=== PATIENT | female | born 1985 | race Caucasian/White ===

== ENCOUNTER 2018-02-06 18:51 | Emergency (ER) | payer MEDICAID, SELFPAY ==
[2018-02-06 19:15] VITALS: BP 126/84; PULSE 94; RESP 14; TEMP 36.9; O2SAT 99
[2018-02-06 19:16] VITALS: PULSE 94; RESP 14; TEMP 36.9; O2SAT 99; BMI 23.0
--- NOTE | 2018-02-06 19:26 | DI.US.S_ITS ---
PROCEDURE: US OB <= 14 WEEKS FETUS INDICATIONS: CRAMPING; BLEEDING OUTSIDE/PRIOR DATING DATA: Last menstrual period (LMP): 11/02/17. LMP-based estimated date of delivery (ELISE): 08/09/18. First dating scan (date and location): 02/06/18. Estimated date of delivery (ELISE) from first dating scan: 08/15/18. TECHNIQUE: Real-time scanning was performed of the fetus and maternal pelvic organs, with image documentation. COMPARISON: None. FINDINGS: Embryo: There is an intrauterine with a gestational sac and pole visualized. There is heart motion with a rate of 138 beats per minute. The biparietal diameter measures 2.0 cm corresponding to gestational age of 13 weeks 1 day. Head circumference is 7.4 cm, 30 weeks 1 day. Abdominal circumference 6.1 cm, 12 weeks 6 days. Femur length is 0.7 cm, 12 weeks 1 day. No perigestational fluid collections. There is an anterior placenta with marginal placenta previa at this point. Measurement variability in dating: +/- 4 weeks by LMP, +/- 7 days by mean sac diameter (use before 6 weeks gestation if crown-rump length not able to be measured), +/- 5 days by crown-rump length (up to 8 weeks 6 days gestation), +/- 7 days by crown-rump length (up to 13 weeks 6 days gestation). Maternal organs: Ovaries were not well seen. Limited images through the kidneys demonstrate no hydronephrosis. Cervical length measures approximately 2.9 cm. IMPRESSION: 1. Single living intrauterine with calculated gestational age of 12 weeks 6 days responding to an estimated delivery date of 08/15/18. 2. Marginal placenta previa at this time. Recommend attention on followup. Dictated by: Irineo Rios M.D. on 02/06/2018 at 20:30 Approved by: Irineo Rios M.D. on 02/06/2018 at 20:33
--- NOTE | 2018-02-06 19:28 | ED.PREGNANCY ---
HPI - <KOLE Romero- - Last Filed: 02/06/18 21:23> General Chief complaint: OB/Uterine Contractions Stated complaint: 13wks cramping and bleeding Time Seen by Provider: 02/06/18 19:20 Source: patient Mode of arrival: ambulatory Limitations: no limitations History of Present Illness HPI Narrative: Patient presents with chief complaint of vaginal bleeding for the past few days. She states she is approximately 12-13 weeks . She has noted bleeding enough to fill a panty liner for the past 2 days and woke up this morning with lower abdominal cramping. She has a history of 2 miscarriages. She denies any fevers vomiting or diarrhea. She denies any vaginal complaints such as discharge and denies any sexually transmitted infections. She denies any lightheadedness. she denies any dysuria urgency or frequency. Review of Systems <KOLE Romero- - Last Filed: 02/06/18 21:23> Review of Systems GENERAL: Denies chills, fatigue, malaise, fever, sweats. HEENT: Denies sinus pain, ear pain, sore throat, difficulty swallowing, dizziness. RESPIRATORY: Denies dyspnea, cough, wheezing, hemoptysis, sputum. CARDIOVASCULAR: Denies chest pain, palpitations, orthopnea, edema, GASTROINTESTINAL: Denies nausea, vomiting, abdominal pain, diarrhea, constipation, melena. : See HPI MUSCULOSKELETAL: denies weakness, joint pain, or bony pain SKIN: Denies rash, skin lesions, or other NEUROLOGIC: Denies weakness, headache, numbness, change in speech, confusion, seizures, incoordination. PSYCHIATRIC: No concerning psychosocial issues. 12 point review of systems is negative except for those stated above Exam <SHAWN RomeroP- - Last Filed: 02/06/18 21:23> Narrative Exam Narrative: GENERAL: This is a well-nourished, well-developed patient, Teary. HEAD: Atraumatic. Normocephalic. No temporal or scalp tenderness. EYES: Pupils equal round and reactive. Extraocular motions intact. No scleral icterus. No injection or drainage. ENT: Nose without bleeding, purulent drainage or septal hematoma. Throat without erythema, tonsillar hypertrophy or exudate. Uvula midline. Airway patent. NECK: Trachea midline. No JVD or lymphadenopathy. Supple, nontender, no meningeal signs. CARDIOVASCULAR: Regular rate and rhythm without murmurs, gallops, or rubs. RESPIRATORY: Clear to auscultation. Breath sounds equal bilaterally. No wheezes, rales, or rhonchi. GASTROINTESTINAL: Abdomen soft, Active bowel sounds all 4 quadrants, nondistended. No hepato-splenomegaly, or palpable masses. No guarding. slight pain to palpation suprapubic area. No guarding noted. No pain at McBurney's point. EXTREMITIES: No clubbing, cyanosis, or edema. No joint tenderness, effusion, or edema noted. BACK: Nontender without deformity or crepitance. No flank tenderness. NEURO: AOx3. SKIN: No rash or erythema. Initial Vital Signs Initial Vital Signs: Vital Signs Temperature 98.5 F 02/06/18 19:15 Pulse Rate 94 H 02/06/18 19:15 Respiratory Rate 14 02/06/18 19:15 Blood Pressure 126/84 02/06/18 19:15 Pulse Oximetry 99 02/06/18 19:15 <Aminta Blackburn DO - Last Filed: 02/09/18 01:44> Initial Vital Signs Initial Vital Signs: Vital Signs Temperature 98.5 F 02/06/18 19:15 Pulse Rate 94 H 02/06/18 19:15 Respiratory Rate 14 02/06/18 19:15 Blood Pressure 126/84 02/06/18 19:15 Pulse Oximetry 99 02/06/18 19:15 Course <KOLE Romero-BC - Last Filed: 02/06/18 21:23> Orders Ordered: Discontinued Medications Oxycodone HCl (Percolone) 5 mg PO NOW ONE Stop: 02/06/18 20:37 Last Admin: 02/06/18 21:18 Dose: Oxycodone/Acetaminophen (Percocet 5/325) 1 tab PO NOW ONE Stop: 02/06/18 20:41 Last Admin: 02/06/18 20:41 Dose: 1 tab Vital Signs - 8 hr 02/06/18 19:15 02/06/18 19:16 02/06/18 19:38 Temperature 98.5 F 98.5 F 98.5 F Pulse Rate 94 H 94 H 94 H Respiratory Rate 14 14 14 Blood Pressure [Right Arm] 126/84 Pulse Oximetry 99 99 99 10/16/18 21:09 Temperature Pulse Rate 78 Respiratory Rate 14 Blood Pressure [Right Arm] 105/64 Pulse Oximetry 97 <Aminta Blackburn DO - Last Filed: 02/09/18 01:44> Orders Ordered: Discontinued Medications Oxycodone HCl (Percolone) 5 mg PO NOW ONE Stop: 02/06/18 20:37 Last Admin: 02/06/18 21:18 Dose: Oxycodone/Acetaminophen (Percocet 5/325) 1 tab PO NOW ONE Stop: 02/06/18 20:41 Last Admin: 02/06/18 20:41 Dose: 1 tab Vital Signs - 8 hr 02/06/18 19:15 02/06/18 19:16 02/06/18 19:38 Temperature 98.5 F 98.5 F 98.5 F Pulse Rate 94 H 94 H 94 H Respiratory Rate 14 14 14 Blood Pressure [Right Arm] 126/84 Pulse Oximetry 99 99 99 02/06/18 21:09 Temperature Pulse Rate 78 Respiratory Rate 14 Blood Pressure [Right Arm] 105/64 Pulse Oximetry 97 MDM - OB/Uterine Contractions <DAVEY Romero - Last Filed: 02/06/18 21:23> Lab Data Result diagrams: 02/06/18 19:30 Lab Results 02/06/18 02/06/18 02/06/18 Range/Units 19:30 19:30 19:30 WBC 6.8 (4.5-11.0) X10^3/uL RBC 3.97 L (4.0-5.2) X10^6/uL Hgb 12.2 (12.0-16.0) g/dL Hct 35.1 L (36-46) % MCV 88.4 (80-100) fL MCH 30.6 (26-34) PG MCHC 34.6 (30-36) % RDW 13.2 (11.6-14.8) % Plt Count 222 (150-400) X10^3/uL Neut % (Auto) 66.2 (50-75) % Lymph % (Auto) 25.9 (25-40) % [place] % (Auto) 6.2 (3-14) % Eos % (Auto) 1.5 L (2-4) % Baso % (Auto) 0.2 (0-2) % Neut # (Auto) 4500 (1262-0866) /uL HCG, Quant 34808 mIU/mL Urine Color Urine Appearance Urine pH (4.5-8.0) Ur Specific [place] (1.000-1.035) Urine Protein (Negative) Urine Glucose (UA) (Normal) g/dL Urine Ketones (NEGATIVE) Urine Occult Blood (Negative) Urine Nitrate (Negative) Urine Bilirubin (NEGATIVE) Urine Urobilinogen (0.2) E.U./dL Ur Leukocyte Esterase (NEGATIVE) Urine RBC (0-5/HPF) Urine WBC (0-5/HPF) Ur Squamous Epith Cells Urine Bacteria (None) Ur Culture Indicated? Micro UA Comment Blood Type O Negative 02/06/18 Range/Units Unknown WBC (4.5-11.0) X10^3/uL RBC (4.0-5.2) X10^6/uL Hgb (12.0-16.0) g/dL Hct (36-46) % MCV (80-100) fL MCH (26-34) PG MCHC (30-36) % RDW (11.6-14.8) % Plt Count (150-400) X10^3/uL Neut % (Auto) (50-75) % Lymph % (Auto) (25-40) % [place] % (Auto) (3-14) % Eos % (Auto) (2-4) % Baso % (Auto) (0-2) % Neut # (Auto) (3600-1150) /uL HCG, Quant mIU/mL Urine Color Yellow Urine Appearance Clear Urine pH 6.5 (4.5-8.0) Ur Specific [place] <=1.005 (1.000-1.035) Urine Protein Negative (Negative) Urine Glucose (UA) Negative (Normal) g/dL Urine Ketones Negative (NEGATIVE) Urine Occult Blood Negative (Negative) Urine Nitrate Negative (Negative) Urine Bilirubin Negative (NEGATIVE) Urine Urobilinogen 0.2 (0.2) E.U./dL Ur Leukocyte Esterase Negative (NEGATIVE) Urine RBC None seen (0-5/HPF) Urine WBC None seen (0-5/HPF) Ur Squamous Epith Cells 0-1 /hpf Urine Bacteria None seen (None) Ur Culture Indicated? Cult not indicated Micro UA Comment Microscopic normal Blood Type Imaging Data US - abdomen: Radiologist's impression: [address] [address] Ultrasound Report Signed Patient: Karma Hinds LMR#: [id number] : 1985Acct:[id number] Age/Sex: 32 / FDate of Service: 02/06/18 Loc: ED Accession Number: [id number] Procedure: US OB <= 14 weeks fetus Ordering Provider: Blaire Pedraza PROCEDURE: US OB <= 14 WEEKS FETUS INDICATIONS: CRAMPING; BLEEDING OUTSIDE/PRIOR DATING DATA: Last menstrual period (LMP): 11/02/17. LMP-based estimated date of delivery (ELISE): 08/09/18. First dating scan (date and location): 02/06/18. Estimated date of delivery (ELISE) from first dating scan: 08/15/18. TECHNIQUE: Real-time scanning was performed of the fetus and maternal pelvic organs, with image documentation. COMPARISON: None. FINDINGS: Embryo: There is an intrauterine with a gestational sac and pole visualized. There is heart motion with a rate of 138 beats per minute. The biparietal diameter measures 2.0 cm corresponding to gestational age of 13 weeks 1 day. Head circumference is 7.4 cm, 30 weeks 1 day. Abdominal circumference 6.1 cm, 12 weeks 6 days. Femur length is 0.7 cm, 12 weeks 1 day. No perigestational fluid collections. There is an anterior placenta with marginal placenta previa at this point. Measurement variability in dating: +/- 4 weeks by LMP, +/- 7 days by mean sac diameter (use before 6 weeks gestation if crown-rump length not able to be measured), +/- 5 days by crown-rump length (up to 8 weeks 6 days gestation), +/- 7 days by crown-rump length (up to 13 weeks 6 days gestation). Maternal organs: Ovaries were not well seen. Limited images through the kidneys demonstrate no hydronephrosis. Cervical length measures approximately 2.9 cm. IMPRESSION: 1. Single living intrauterine with calculated gestational age of 12 weeks 6 days responding to an estimated delivery date of 08/15/18. 2. Marginal placenta previa at this time. Recommend attention on followup. Dictated by: Irineo Rios M.D. on 02/06/2018 at 20:30 Approved by: Irineo Rios M.D. on 02/06/2018 at 20:33 MDM Narrative Medical decision making narrative: Patient presents with chief complaint of vaginal bleeding during . It has was going on for 2 days but she has no bleeding today but abdominal cramping. Her lab work came back grossly normal. Ultrasound shows a healthy at this time, but slight placenta previa. I believe this is causing her abdominal cramping and vaginal bleeding. I discussed at length follow up with her OBGYN and discussed return precautions of severe bleeding and lightheadedness. Patient had no questions or concerns upon discharge. <Aminta Blackburn, DO - Last Filed: 02/09/18 01:44> Lab Data Attestation: I reviewed the patient's lab results. Lab Results 02/06/18 02/06/18 02/06/18 Range/Units 19:30 19:30 19:30 WBC 6.8 (4.5-11.0) X10^3/uL RBC 3.97 L (4.0-5.2) X10^6/uL Hgb 12.2 (12.0-16.0) g/dL Hct 35.1 L (36-46) % MCV 88.4 (80-100) fL MCH 30.6 (26-34) PG MCHC 34.6 (30-36) % RDW 13.2 (11.6-14.8) % Plt Count 222 (150-400) X10^3/uL Neut % (Auto) 66.2 (50-75) % Lymph % (Auto) 25.9 (25-40) % [place] % (Auto) 6.2 (3-14) % Eos % (Auto) 1.5 L (2-4) % Baso % (Auto) 0.2 (0-2) % Neut # (Auto) 4500 (8651-8891) /uL HCG, Quant 32444 mIU/mL Urine Color Urine Appearance Urine pH (4.5-8.0) Ur Specific [place] (1.000-1.035) Urine Protein (Negative) Urine Glucose (UA) (Normal) g/dL Urine Ketones (NEGATIVE) Urine Occult Blood (Negative) Urine Nitrate (Negative) Urine Bilirubin (NEGATIVE) Urine Urobilinogen (0.2) E.U./dL Ur Leukocyte Esterase (NEGATIVE) Urine RBC (0-5/HPF) Urine WBC (0-5/HPF) Ur Squamous Epith Cells Urine Bacteria (None) Ur Culture Indicated? Micro UA Comment Blood Type O Negative 02/06/18 Range/Units Unknown WBC (4.5-11.0) X10^3/uL RBC (4.0-5.2) X10^6/uL Hgb (12.0-16.0) g/dL Hct (36-46) % MCV (80-100) fL MCH (26-34) PG MCHC (30-36) % RDW (11.6-14.8) % Plt Count (150-400) X10^3/uL Neut % (Auto) (50-75) % Lymph % (Auto) (25-40) % [place] % (Auto) (3-14) % Eos % (Auto) (2-4) % Baso % (Auto) (0-2) % Neut # (Auto) (7710-0565) /uL HCG, Quant mIU/mL Urine Color Yellow Urine Appearance Clear Urine pH 6.5 (4.5-8.0) Ur Specific [place] <=1.005 (1.000-1.035) Urine Protein Negative (Negative) Urine Glucose (UA) Negative (Normal) g/dL Urine Ketones Negative (NEGATIVE) Urine Occult Blood Negative (Negative) Urine Nitrate Negative (Negative) Urine Bilirubin Negative (NEGATIVE) Urine Urobilinogen 0.2 (0.2) E.U./dL Ur Leukocyte Esterase Negative (NEGATIVE) Urine RBC None seen (0-5/HPF) Urine WBC None seen (0-5/HPF) Ur Squamous Epith Cells 0-1 /hpf Urine Bacteria None seen (None) Ur Culture Indicated? Cult not indicated Micro UA Comment Microscopic normal Blood Type Discharge Plan Departure Patient Disposition: Home Clinical Impression: Threatened Discharge Date/Time: 02/06/18 21:21 Interventions: ED Discharge Assessment Last Done: 02/06/18 21:18 Instructions: DI for Placenta Previa, DI for Vaginal Bleeding During Activity Restrictions/Additional Instructions: Your lab work looks good today. Your ultrasound shows some placenta previa. This can be causing cramping as well as some vaginal bleeding. Please follow-up with your OBGYN for recheck and recheck of your lab work. please follow-up with your OBGYN. <Aminta Blackburn, DO - Last Filed: 02/09/18 01:44> Cosign ED Attending Sarah Attestation: I was immediately available in the department for consultation. Documentation has been reviewed. I agree with assessment and plan. Discussed giving a RhoGAM, not having a large amount of bleeding. Patient is O negative.
--- NOTE | 2018-02-06 19:31 | ED_ITS ---
HPI - <KOLE Romero- - Last Filed: 02/06/18 21:23> General Chief complaint: OB/Uterine Contractions Stated complaint: 13wks cramping and bleeding Time Seen by Provider: 02/06/18 19:20 Source: patient Mode of arrival: ambulatory Limitations: no limitations History of Present Illness HPI Narrative: Patient presents with chief complaint of vaginal bleeding for the past few days. She states she is approximately 12-13 weeks . She has noted bleeding enough to fill a panty liner for the past 2 days and woke up this morning with lower abdominal cramping. She has a history of 2 miscarriages. She denies any fevers vomiting or diarrhea. She denies any vaginal complaints such as discharge and denies any sexually transmitted infections. She denies any lightheadedness. she denies any dysuria urgency or frequency. Review of Systems <KOLE Romero- - Last Filed: 02/06/18 21:23> Review of Systems GENERAL: Denies chills, fatigue, malaise, fever, sweats. HEENT: Denies sinus pain, ear pain, sore throat, difficulty swallowing, dizziness. RESPIRATORY: Denies dyspnea, cough, wheezing, hemoptysis, sputum. CARDIOVASCULAR: Denies chest pain, palpitations, orthopnea, edema, GASTROINTESTINAL: Denies nausea, vomiting, abdominal pain, diarrhea, constipation, melena. : See HPI MUSCULOSKELETAL: denies weakness, joint pain, or bony pain SKIN: Denies rash, skin lesions, or other NEUROLOGIC: Denies weakness, headache, numbness, change in speech, confusion, seizures, incoordination. PSYCHIATRIC: No concerning psychosocial issues. 12 point review of systems is negative except for those stated above Exam <SHAWN RomeroP- - Last Filed: 02/06/18 21:23> Narrative Exam Narrative: GENERAL: This is a well-nourished, well-developed patient, Teary. HEAD: Atraumatic. Normocephalic. No temporal or scalp tenderness. EYES: Pupils equal round and reactive. Extraocular motions intact. No scleral icterus. No injection or drainage. ENT: Nose without bleeding, purulent drainage or septal hematoma. Throat without erythema, tonsillar hypertrophy or exudate. Uvula midline. Airway patent. NECK: Trachea midline. No JVD or lymphadenopathy. Supple, nontender, no meningeal signs. CARDIOVASCULAR: Regular rate and rhythm without murmurs, gallops, or rubs. RESPIRATORY: Clear to auscultation. Breath sounds equal bilaterally. No wheezes , rales, or rhonchi. GASTROINTESTINAL: Abdomen soft, Active bowel sounds all 4 quadrants, nondistended. No hepato-splenomegaly, or palpable masses. No guarding. slight pain to palpation suprapubic area. No guarding noted. No pain at McBurney's point. EXTREMITIES: No clubbing, cyanosis, or edema. No joint tenderness, effusion, or edema noted. BACK: Nontender without deformity or crepitance. No flank tenderness. NEURO: AOx3. SKIN: No rash or erythema. Initial Vital Signs Initial Vital Signs: Vital Signs Temperature 98.5 F 02/06/18 19:15 Pulse Rate 94 H 02/06/18 19:15 Respiratory Rate 14 02/06/18 19:15 Blood Pressure 126/84 02/06/18 19:15 Pulse Oximetry 99 02/06/18 19:15 <Aminta Blackburn DO - Last Filed: 02/09/18 01:44> Initial Vital Signs Initial Vital Signs: Vital Signs Temperature 98.5 F 02/06/18 19:15 Pulse Rate 94 H 02/06/18 19:15 Respiratory Rate 14 02/06/18 19:15 Blood Pressure 126/84 02/06/18 19:15 Pulse Oximetry 99 02/06/18 19:15 Course <KOLE Romero-BC - Last Filed: 02/06/18 21:23> Orders Ordered: Discontinued Medications Oxycodone HCl (Percolone) 5 mg PO NOW ONE Stop: 02/06/18 20:37 Last Admin: 02/06/18 21:18 Dose: Oxycodone/Acetaminophen (Percocet 5/325) 1 tab PO NOW ONE Stop: 02/06/18 20:41 Last Admin: 02/06/18 20:41 Dose: 1 tab Vital Signs - 8 hr 02/06/18 19:15 02/06/18 19:16 02/06/18 19:38 Temperature 98.5 F 98.5 F 98.5 F Pulse Rate 94 H 94 H 94 H Respiratory Rate 14 14 14 Blood Pressure [Right Arm] 126/84 Pulse Oximetry 99 99 99 10/16/18 21:09 Temperature Pulse Rate 78 Respiratory Rate 14 Blood Pressure [Right Arm] 105/64 Pulse Oximetry 97 <Aminta Blackburn DO - Last Filed: 02/09/18 01:44> Orders Ordered: Discontinued Medications Oxycodone HCl (Percolone) 5 mg PO NOW ONE Stop: 02/06/18 20:37 Last Admin: 02/06/18 21:18 Dose: Oxycodone/Acetaminophen (Percocet 5/325) 1 tab PO NOW ONE Stop: 02/06/18 20:41 Last Admin: 02/06/18 20:41 Dose: 1 tab Vital Signs - 8 hr 02/06/18 19:15 02/06/18 19:16 02/06/18 19:38 Temperature 98.5 F 98.5 F 98.5 F Pulse Rate 94 H 94 H 94 H Respiratory Rate 14 14 14 Blood Pressure [Right Arm] 126/84 Pulse Oximetry 99 99 99 02/06/18 21:09 Temperature Pulse Rate 78 Respiratory Rate 14 Blood Pressure [Right Arm] 105/64 Pulse Oximetry 97 MDM - OB/Uterine Contractions <DAVEY Romero - Last Filed: 02/06/18 21:23> Lab Data Result diagrams: 02/06/18 19:30 Lab Results 02/06/18 02/06/18 02/06/18 Range/Units 19:30 19:30 19:30 WBC 6.8 (4.5-11.0) X10^3/uL RBC 3.97 L (4.0-5.2) X10^6/uL Hgb 12.2 (12.0-16.0) g/dL Hct 35.1 L (36-46) % MCV 88.4 (80-100) fL MCH 30.6 (26-34) PG MCHC 34.6 (30-36) % RDW 13.2 (11.6-14.8) % Plt Count 222 (150-400) X10^3/uL Neut % (Auto) 66.2 (50-75) % Lymph % (Auto) 25.9 (25-40) % Weld % (Auto) 6.2 (3-14) % Eos % (Auto) 1.5 L (2-4) % Baso % (Auto) 0.2 (0-2) % Neut # (Auto) 4500 (4582-6868) /uL HCG, Quant 77087 mIU/mL Urine Color Urine Appearance Urine pH (4.5-8.0) Ur Specific [place] (1.000-1.035) Urine Protein (Negative) Urine Glucose (UA) (Normal) g/dL Urine Ketones (NEGATIVE) Urine Occult Blood (Negative) Urine Nitrate (Negative) Urine Bilirubin (NEGATIVE) Urine Urobilinogen (0.2) E.U./dL Ur Leukocyte Esterase (NEGATIVE) Urine RBC (0-5/HPF) Urine WBC (0-5/HPF) Ur Squamous Epith Cells Urine Bacteria (None) Ur Culture Indicated? Micro UA Comment Blood Type O Negative 02/06/18 Range/Units Unknown WBC (4.5-11.0) X10^3/uL RBC (4.0-5.2) X10^6/uL Hgb (12.0-16.0) g/dL Hct (36-46) % MCV (80-100) fL MCH (26-34) PG MCHC (30-36) % RDW (11.6-14.8) % Plt Count (150-400) X10^3/uL Neut % (Auto) (50-75) % Lymph % (Auto) (25-40) % Weld % (Auto) (3-14) % Eos % (Auto) (2-4) % Baso % (Auto) (0-2) % Neut # (Auto) (4633-8092) /uL HCG, Quant mIU/mL Urine Color Yellow Urine Appearance Clear Urine pH 6.5 (4.5-8.0) Ur Specific [place] <=1.005 (1.000-1.035) Urine Protein Negative (Negative) Urine Glucose (UA) Negative (Normal) g/dL Urine Ketones Negative (NEGATIVE) Urine Occult Blood Negative (Negative) Urine Nitrate Negative (Negative) Urine Bilirubin Negative (NEGATIVE) Urine Urobilinogen 0.2 (0.2) E.U./dL Ur Leukocyte Esterase Negative (NEGATIVE) Urine RBC None seen (0-5/HPF) Urine WBC None seen (0-5/HPF) Ur Squamous Epith Cells 0-1 /hpf Urine Bacteria None seen (None) Ur Culture Indicated? Cult not indicated Micro UA Comment Microscopic normal Blood Type Imaging Data US - abdomen: Radiologist's impression: [address] [address] Ultrasound Report Signed Patient: Karma Hinds LMR#: [id number] : 1985Acct:[id number] Age/Sex: 32 / FDate of Service: 02/06/18 Loc: ED Accession Number: [id number] Procedure: US OB <= 14 weeks fetus Ordering Provider: Blaire Pedraza PROCEDURE: US OB <= 14 WEEKS FETUS INDICATIONS: CRAMPING; BLEEDING OUTSIDE/PRIOR DATING DATA: Last menstrual period (LMP): 11/02/17. LMP-based estimated date of delivery (ELISE): 08/09/18. First dating scan (date and location): 02/06/18. Estimated date of delivery (ELISE) from first dating scan: 08/15/18. TECHNIQUE: Real-time scanning was performed of the fetus and maternal pelvic organs, with image documentation. COMPARISON: None. FINDINGS: Embryo: There is an intrauterine with a gestational sac and pole visualized. There is heart motion with a rate of 138 beats per minute. The biparietal diameter measures 2.0 cm corresponding to gestational age of 13 weeks 1 day. Head circumference is 7.4 cm, 30 weeks 1 day. Abdominal circumference 6.1 cm, 12 weeks 6 days. Femur length is 0.7 cm, 12 weeks 1 day. No perigestational fluid collections. There is an anterior placenta with marginal placenta previa at this point. Measurement variability in dating: +/- 4 weeks by LMP, +/- 7 days by mean sac diameter (use before 6 weeks gestation if crown-rump length not able to be measured), +/ - 5 days by crown-rump length (up to 8 weeks 6 days gestation), +/- 7 days by crown-rump length (up to 13 weeks 6 days gestation). Maternal organs: Ovaries were not well seen. Limited images through the kidneys demonstrate no hydronephrosis. Cervical length measures approximately 2.9 cm. IMPRESSION: 1. Single living intrauterine with calculated gestational age of 12 weeks 6 days responding to an estimated delivery date of 08/15/18. 2. Marginal placenta previa at this time. Recommend attention on followup. Dictated by: Irineo Rios M.D. on 02/06/2018 at 20:30 Approved by: Irineo Rios M.D. on 02/06/2018 at 20:33 MDM Narrative Medical decision making narrative: Patient presents with chief complaint of vaginal bleeding during . It has was going on for 2 days but she has no bleeding today but abdominal cramping. Her lab work came back grossly normal. Ultrasound shows a healthy at this time, but slight placenta previa. I believe this is causing her abdominal cramping and vaginal bleeding. I discussed at length follow up with her OBGYN and discussed return precautions of severe bleeding and lightheadedness. Patient had no questions or concerns upon discharge. <Aminta Blackburn, DO - Last Filed: 02/09/18 01:44> Lab Data Attestation: I reviewed the patient's lab results. Lab Results 02/06/18 02/06/18 02/06/18 Range/Units 19:30 19:30 19:30 WBC 6.8 (4.5-11.0) X10^3/uL RBC 3.97 L (4.0-5.2) X10^6/uL Hgb 12.2 (12.0-16.0) g/dL Hct 35.1 L (36-46) % MCV 88.4 (80-100) fL MCH 30.6 (26-34) PG MCHC 34.6 (30-36) % RDW 13.2 (11.6-14.8) % Plt Count 222 (150-400) X10^3/uL Neut % (Auto) 66.2 (50-75) % Lymph % (Auto) 25.9 (25-40) % Weld % (Auto) 6.2 (3-14) % Eos % (Auto) 1.5 L (2-4) % Baso % (Auto) 0.2 (0-2) % Neut # (Auto) 4500 (5965-9573) /uL HCG, Quant 80907 mIU/mL Urine Color Urine Appearance Urine pH (4.5-8.0) Ur Specific [place] (1.000-1.035) Urine Protein (Negative) Urine Glucose (UA) (Normal) g/dL Urine Ketones (NEGATIVE) Urine Occult Blood (Negative) Urine Nitrate (Negative) Urine Bilirubin (NEGATIVE) Urine Urobilinogen (0.2) E.U./dL Ur Leukocyte Esterase (NEGATIVE) Urine RBC (0-5/HPF) Urine WBC (0-5/HPF) Ur Squamous Epith Cells Urine Bacteria (None) Ur Culture Indicated? Micro UA Comment Blood Type O Negative 02/06/18 Range/Units Unknown WBC (4.5-11.0) X10^3/uL RBC (4.0-5.2) X10^6/uL Hgb (12.0-16.0) g/dL Hct (36-46) % MCV (80-100) fL MCH (26-34) PG MCHC (30-36) % RDW (11.6-14.8) % Plt Count (150-400) X10^3/uL Neut % (Auto) (50-75) % Lymph % (Auto) (25-40) % Weld % (Auto) (3-14) % Eos % (Auto) (2-4) % Baso % (Auto) (0-2) % Neut # (Auto) (2564-2155) /uL HCG, Quant mIU/mL Urine Color Yellow Urine Appearance Clear Urine pH 6.5 (4.5-8.0) Ur Specific [place] <=1.005 (1.000-1.035) Urine Protein Negative (Negative) Urine Glucose (UA) Negative (Normal) g/dL Urine Ketones Negative (NEGATIVE) Urine Occult Blood Negative (Negative) Urine Nitrate Negative (Negative) Urine Bilirubin Negative (NEGATIVE) Urine Urobilinogen 0.2 (0.2) E.U./dL Ur Leukocyte Esterase Negative (NEGATIVE) Urine RBC None seen (0-5/HPF) Urine WBC None seen (0-5/HPF) Ur Squamous Epith Cells 0-1 /hpf Urine Bacteria None seen (None) Ur Culture Indicated? Cult not indicated Micro UA Comment Microscopic normal Blood Type Discharge Plan Departure Patient Disposition: Home Clinical Impression: Threatened Discharge Date/Time: 02/06/18 21:21 Interventions: ED Discharge Assessment Last Done: 02/06/18 21:18 Instructions: DI for Placenta Previa, DI for Vaginal Bleeding During Activity Restrictions/Additional Instructions: Your lab work looks good today. Your ultrasound shows some placenta previa. This can be causing cramping as well as some vaginal bleeding. Please follow- up with your OBGYN for recheck and recheck of your lab work. please follow- up with your OBGYN. <Aminta Blackburn, DO - Last Filed: 02/09/18 01:44> Cosign ED Attending Sarah Attestation: I was immediately available in the department for consultation. Documentation has been reviewed. I agree with assessment and plan. Discussed giving a RhoGAM, not having a large amount of bleeding. Patient is O negative.
[2018-02-06 19:38] VITALS: PULSE 94; RESP 14; TEMP 36.9; O2SAT 99; BMI 23.0
[2018-02-06 19:54] LABS: Add Manual Diff / Slide Review NO; Basophils Percent Auto 0.2 % (0-2); Eosinophils Percent Auto 1.5 % (2-4); Hematocrit 35.1 % (36-46); Hemoglobin 12.2 g/dL (12.0-16.0); Lymphocytes Percent Auto 25.9 % (25-40); Mean Corpuscular HGB Conc 34.6 % (30-36); Mean Corpuscular Hemoglobin 30.6 PG (26-34); Mean Corpuscular Volume 88.4 fL (80-100); Monocytes Percent Auto 6.2 % (3-14); Neutrophils Absolute Auto 4500 /uL (3000-5900); Neutrophils Percent Auto 66.2 % (50-75); Platelet Count 222 X10^3/uL (150-400); Red Blood Cell Count 3.97 X10^6/uL (4.0-5.2); Red Cell Distribution Width 13.2 % (11.6-14.8); White Blood Cell Count 6.8 X10^3/uL (4.5-11.0)
[2018-02-06 20:06] LABS: Bacteria Urine None Seen; RBC Urine None Seen (0-5/HPF); WBC Urine None Seen (0-5/HPF)
[2018-02-06 20:09] LABS: Appearance Urine UA CLEAR; Bilirubin Urine UA NEGATIVE (NEGATIVE); Color Urine UA YELLOW; Glucose Urine UA NEGATIVE (Normal); Ketones Urine UA NEGATIVE (NEGATIVE); Leukocyte Esterase Urine UA NEGATIVE (NEGATIVE); Nitrite Urine UA NEGATIVE (Negative); Occult Blood Urine UA NEGATIVE (Negative); Protein Urine UA NEGATIVE (Negative); Specific Gravity Urine UA <=1.005 (1.000-1.035); Urobilinogen Urine UA 0.2 E.U./dL (0.2); pH Urine UA 6.5 (4.5-8.0)
[2018-02-06 20:15] LABS: Culture Indicated Urine Cult Not Indicated; Squamous Epithelial Cell Urine 0-1 /HPF; Urine Comments Microscopic Normal
[2018-02-06 20:39] LABS: HCG Quantitative /Beta subunit 72078 mIU/mL
[2018-02-06] MEDS: OXYCODONE/ACETAMINOPHEN 5/325 TABLET 1 TAB PO (20:41)
[2018-02-06 21:09] VITALS: BP 105/64; PULSE 78; RESP 14; O2SAT 97
== END 2018-02-06 21:21 | disposition home or self-care (01) ==
PROVIDERS: Emergency Provider Nurse Practitioner Family
DX: O20.0 Threatened abortion (principal); Z3A.13 13 weeks gestation of pregnancy
CPT/HCPCS: 36415; 36591; 76801; 81001; 84702; 85025; 86900; 86901; 99282; 99284

== ENCOUNTER 2018-03-11 01:37 | Emergency (ER) | payer MEDICAID, SELFPAY ==
[2018-03-11 01:45] VITALS: BP 126/93; PULSE 83; RESP 14; TEMP 36.7; O2SAT 98
--- NOTE | 2018-03-11 01:52 | ED_ITS ---
HPI - Headache General Chief Complaint: Headache Stated Complaint: has migraine Time Seen by Provider: 03/11/18 01:41 Source: patient and old records reviewed Mode of arrival: ambulatory Limitations: no limitations History of Present Illness HPI Narrative: this is a 32-year-old female who comes to the emergency department with complaint of migraine. Patient states she has a history of migraines there the worst when she was in high school. She has also had issues with her prior pregnancies particularly in the 1st or 2nd trimester and then resolving in the 3rd trimester. Patient is 16 weeks today. She states that she has been having headache/migraine for 4 days. She states she did take some Tylenol tonight with no real resolution of his having vomiting. She states this is her typical migraine pattern. She has seen a neurologist in the past, she is not able to use her usual Imitrex because of . Patient states she has not had any new numbness, weakness difficulty with speech or other neurologic changes. She has not had any chest pain, no shortness of breath, no diarrhea or constipation. Patient states that she does have an allergy to Reglan which she describes as wanting to run or feeling very itchy and antsy. No fevers. No new vision changes. Patient states she was driven here by her . Related Data Home Medications Medication Instructions Recorded Confirmed No Known Home Medications 03/11/18 03/11/18 Allergies Allergy/AdvReac Type Severity Reaction Status Date / Time metoclopramide [From Reglan] Allergy Unknown Verified 03/11/18 01:48 Review of Systems Review of Systems All systems reviewed & are unremarkable except as noted in HPI and below Constitutional Denies chills, Denies fever(s), Reports headache(s) and Denies weakness Eyes Denies change in vision and Reports photophobia ENT Ears, Nose, Mouth, and Throat: Reports headache(s) and Denies nasal congestion Cardiovascular Denies chest pain, Denies syncope and Denies dyspnea Respiratory Denies dyspnea Gastrointestinal Gastrointestinal: Denies abdominal pain, Denies diarrhea, Reports nausea and Reports vomiting Genitourinary Denies dysuria, Denies pelvic pain and Reports other () Musculoskeletal Denies numbness Integumentary/Breasts Denies rash Neurologic Reports as per HPI, Denies syncope, Reports headache(s), Denies focal weakness, Denies numbness, Denies other visual disturbances, Denies sensory deficit and Denies weakness PFSH Medical History Migraines (Acute) Social History Smoking Status: Never smoker Exam Narrative Exam Narrative: GEN: well nourished, well appearing female, alert and oriented x 3, patient appears to be in moderate distress. HEENT: Atraumatic, pupils are equal round reactive to light, extraocular movements are intact, mild photophobia, nares are clear, TMs are clear with no fluid, there is no conjunctival pallor. Throat is clear without any exudates, erythema, tonsillar enlargement or uvular deviation HEART: Regular rate and rhythm without murmur, clicks, rubs. LUNGS:Lungs clear to auscultation, no wheezes, rales, crackles, chest moves symmetrically ABD:bowel sounds normal, soft, non-tender, no guarding, rebound, rigidity, no masses noted, no hepatosplenomegaly MSCL: Non-tender, no muscle atrophy, muscles strength 5/5 upper and lower extremities, full range of motion, normal gait NEURO:CN 2-12 intact, sensation normal Initial Vital Signs Initial Vital Signs: Vital Signs Temperature 98.1 F 03/11/18 01:45 Pulse Rate 83 03/11/18 01:45 Respiratory Rate 14 03/11/18 01:45 Blood Pressure 126/93 H 03/11/18 01:45 Pulse Oximetry 98 03/11/18 01:45 Course Orders Ordered: Discontinued Medications Diphenhydramine HCl (Benadryl) 50 mg IV NOW ONE Stop: 03/11/18 01:51 Last Admin: 03/11/18 02:24 Dose: 50 mg Magnesium Sulfate (Magnesium Sulfate) 2 gm in 50 mls @ 25 mls/hr IV NOW ONE Stop: 03/11/18 03:49 Last Infusion: 03/11/18 04:26 Dose: 0 mls/hr Admin: 03/11/18 02:23 Dose: 25 mls/hr Sodium Chloride (Normal Saline 0.9%) 1,000 mls @ 1,000 mls/hr IV BOLUS ONE Stop: 03/11/18 02:51 Last Infusion: 03/11/18 04:26 Dose: 999 mls/hr Infusion: 03/11/18 02:24 Dose: 375 mls/hr Admin: 03/11/18 02:19 Dose: 1,000 mls/hr Ondansetron HCl (Zofran Odt Prepack) 1 bottle MISC SEEINSTR ONE Stop: 03/11/18 04:33 Vital Signs - 8 hr 03/11/18 01:45 Temperature 98.1 F Pulse Rate 83 Respiratory Rate 14 Blood Pressure 126/93 H Pulse Oximetry 98 MDM - Headache MDM Narrative Medical decision making narrative: Patient had tylenol prior to arrival, will give IV fluids, benadryl for nausea which often helps with migraines also and magnesium. Mag has risk with nursing home treatment in for Rickets and hypocalcemia but appropriate for short term, single dose treatment. Patient and I did discuss what she has had in the past and she does not remember other than fluids being included. Patient has normal pressure, no other signs of pre- eclampsia she would be very early to at 16 weeks. Recheck after medications, nausea improved, headache still present. Patient then fell asleep, medications still infusing. Recheck afterwards patient still has headache but feels improved to return home. Plan to finish fluids. We discussed options for migraine control. Patient can continue tylenol prn for pain, zofran prepack given. Discussed can do cup of coffee or caffeinated beverage with this also if she is comfortable with caffeine in . Call to follow up with wound care center consultant and/or pcp for further recommendations. Discharge Plan Departure Patient Disposition: Home Clinical Impression: Migraine, Instructions: Migraine Headaches (Alternative Therapy) Activity Restrictions/Additional Instructions: Follow up with primary care or wound care center consultant for continued migraines. Call office Monday to see if they would like you to move your appointment up. You may take tylenol 1000mg every 8 hours as needed for pain. You may take zofran every 6 hours as needed for nausea. You may also find alternative treatments helpful such as massage or acupuncture. I would avoid herbal supplements unless consulting your physician first. Return for worsening headaches, vision changes, new weakness, numbness, changes to speech, persistent vomiting, swelling of legs/hands or hyperreflexia. Prescriptions: No Action No Known Home Medications RF: 0
[2018-03-11] MEDS: SODIUM CHLORIDE 0.9% 1,000 ML 1000 ML IV (02:19)
[2018-03-11] MEDS: MAGNESIUM SULFATE 2 GM/50 ML PIGGYBACK IV (02:23)
[2018-03-11] MEDS: diphenhydrAMINE 50 MG/ML VIAL IV (02:24)
--- NOTE | 2018-03-11 02:28 | PC.NURSE ---
ns infusing at 375 to allow pump to run concurrently
--- NOTE | 2018-03-11 03:12 | PC.NURSE ---
Pt reports my nausea is gone but the headache is about the same. she denies needs at this time. Provider notified and acknowledged.
[2018-03-11] MEDS: ONDANSETRON 4 MG ODT PREPACK 1 BOTTLE MISC (04:57)
[2018-03-11 05:02] VITALS: BP 126/70; PULSE 82; RESP 16; TEMP 36.9; O2SAT 99
--- NOTE | 2018-03-13 14:16 | PC.NURSE ---
No answer for followup call
== END 2018-03-11 04:55 | disposition home or self-care (01) ==
PROVIDERS: Emergency Provider Emergency Medicine
DX: G43.909 Migraine, unspecified, not intractable, without status migrainosus (principal)
CPT/HCPCS: 96365; 96366; 96375; 99283; 99284; J1200

== ENCOUNTER 2019-04-30 13:00 | Outpatient (RCR) | payer OTHER, MEDICAID, SELFPAY ==
--- NOTE | 2019-01-19 11:42 | PT.OIE ---
Current Diagnoses Low back pain (01/15/19) Cystocele, midline (01/15/19) Female genital prolapse, unspecified (01/15/19) Past Medical History (Last Updated 01/07/19 @ 21:48 by Clare Rosa) Anemia (Resolved) Anorexia nervosa (Inactive ~2003) Carpal tunnel syndrome (Resolved) Migraines (Acute ~1995) Past Surgical History (Last Updated 01/07/19 @ 21:48 by Clare Rosa) Anesthesia (Resolved) Cyst (Resolved ~2015) History of breast augmentation (Resolved ~2016) Visit Care Team Role Provider Type Doctor MD Clark Primary Care Provider Non-Staff Specialty: Medical Address: Phone: Fax: Email: Other Providers Specialty: Address: Phone: Fax: Email: Yvonne Whitaker MD Attending Provider Physician Specialty: YACHT BUILDER Address: [address] [place] [address], [id number] Email: [email or web address] Physical Therapy Initial Evaluation PT-OP-A Visit Information Start: 01/15/19 12:56 Freq: Status: Active Protocol: Document 01/15/19 13:00 [facility] (Rec: 01/15/19 13:12 [facility] [id number]) Out-Patient Physical Therapy Visit Information Visit Information Visit Type Initial Evaluation Visit Note 33 year old female 5 month post with her 7th vaginal delivery Visit Start Time 13:00 Visit Stop Time 13:45 Total Visit Minutes 45 Visit Number 1 Evaluation Information Evaluation Date 01/15/19 PT-OP-B Current Condition Start: 01/15/19 12:56 Freq: Status: Active Protocol: Document 01/15/19 13:00 [facility] (Rec: 01/15/19 13:12 [facility] [id number]) Current Condition History of Current Condition Onset Date with last , delivered August 16 Current Complaints c/o pelvic pressure and heaviness History of Current Condition Hx of 7 vaginal deliveries with the last one August 16. C/o heavyness, feels like something is falling out, hiking hurts or if she has to carry her toddler or walking and trying to carry anything. She reports the hike starts out fine but then starts to hurt. If someone else is carrying her baby it is better . Unable to go longer than a mile without pain, notes vaginal noises with pilates. Tore more with this delivery, second degree tear. Had a episiotomy with her first vaginal delivery as well forceps with her first. Prior to her last delivery she did not experiency laxity but she was noting leaking with sneezing. She doesn't drink any alcohol or caffiene. Drinks 1 32 oz bottle of water. Limits her water due to not wanting to have to go. Able to delay the need to void but when she uses the restroom she will feel like she has to go again soon. Wakes up at least 4 times per night to void. Experiencing LBP can get pins and needles in her feet. Treatment Goals Patient/Caregiver Goals Treatment goals include decreasing pelvic pressure and low back pain ADL's. 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 Functional Limitations- Recreation/ restrictions with hiking and Hobbies walking distance due to pelvic pain and heaviness, restrictions in bending and picking up her baby due to pain PT-OP-C Subjective Start: 01/15/19 12:56 Freq: Status: Active Protocol: Document 01/15/19 13:00 [facility] (Rec: 01/19/19 11:40 [facility] [email or web address]) Patient Questionnaires Pelvic Pain and Urgency/Frequency Patient Symptom Scale Pelvic Pain Score 27 OP-PT Pain Assessment Location Lower Back Pain Location Details central LBP Intensity 7 Scale Used Numeric (1 - 10) Description- Other pt reports pain is sometimes at a 9/10 Pain Duration with squating, walking, hiking , intercourse Pain Aggravating Factors Position,ADL's,Exercise, Standing,Walking PT-OP-K Range of Motion Start: 01/16/19 09:50 Freq: Status: Active Protocol: Document 01/15/19 13:00 [facility] (Rec: 01/19/19 11:33 [facility] [email or web address]) Lumbar Spine Range of Motion Lumbar Spine Active Testing Position Standing Flexion 30 Lateral Flexion Left 10 Lateral Flexion Right 10 ROM Limitations Soft Tissue Tightness,Muscle Tone Comments pain increases with lumbar flexion PT-OP-Q Treatments Start: 01/15/19 12:56 Freq: Status: Active Protocol: Document 01/15/19 13:00 [facility] (Rec: 01/19/19 11:33 [facility] [email or web address]) Therapeutic Activity Therapeutic Activity 2 Name cat cow low back stretch Reps/Minutes x 10 reps 1 Name pelvic floor 5 second holds with 10 second relaxation Reps/Minutes 5 reps at a time but working up to 3 sets of 10 reps per day PT-OP-T Assessment and Plan Start: 01/15/19 12:56 Freq: Status: Active Protocol: Document 01/15/19 13:00 [facility] (Rec: 01/19/19 11:33 [facility] [email or web address]) Physical Therapy Assessment Rehab Potential Rehabilitation Potential Good Evaluation Complexity Number of Personal Factors/Comorbidities 0 Number of Body Systems Impaired 1-2 Clinical Presentation at Evaluation Stable Impairments Impairments Activity Tolerance,Functional Activities,Pain,Posture,ROM, Soft Tissue Mobility,Strength, Tone Other Impairments pelvic floor weakness with pelvic organ prolapse and c/o heaviness limiting activity level Assessment Summary Assessment Louis presents to physical therapy today 5 months s/p vaginal delivery of her 7th baby. She notes with this last pregnacy she began feeling more low back pain and pelvic pressure. At this time she is very limited with her activity level due to her pelvic pressure and low back pain especially with activities such as squatting or walking while carrying her baby in a pack. Hiking has become too painful and she reports pain with intercourse. She also describes embarrassing vaginal flatulence with exercise and intercourse. So much so that she has stopped engaging in these activities. With examination Louis presents with perineal descent which decreases support to the pelvic organs. She tests grade 2/5 MMT for all lee of the levator ani and has guarding present in the coccygeus. She has limited pelvic floor endurance and becomes fatigued quickly with contractions. A grade 2 uterine prolapse is felt today . Louis's lumbar paraspinals are in spasm and she is right rotated with visable right posterior thoracic wall. There is a positive Active SLR test on the left side demonstrating right sided SI instability. Her back pain is rated 7/10. I started Louis today with EMG biofeedback for improved awareness of her pelvic floor. She was also shown perienal mobilizations to begin working on scar tissue in this region . She will benefit from PT addressing improving perienal support by reducing scar tissue, improve pelvic floor strength and endurance, improving abdominal stabilization for the SI joint , lumbar spinal mobilizations and MFR to the paraspinals, stretches for the lumbar spine and hip musculature. She is a good candidate for PT Physical Therapy Plan Frequency and Duration Frequency of Treatment 1x/Week Duration of Treatment 8 Plan of Care Start Date 01/15/19 Plan of Care End Date 03/12/19 Therapeutic Interventions Therapeutic Interventions Home Exercise Program,Manual Therapy,Neuromuscular Re- education,Patient/Caregiver Education,Self-Care/Home Management,Soft Tissue Mobilization,Therapeutic Exercises Modalities Biofeedback,Electric Stimulation,Ultrasound Next Visit Focus/Plan Next Note Type Treatment Note Next Visit Plan Begin stretches for the lumbar spine into flexion, Transverse abdominus facilitation, EMG biofeedback with pelvic floor retraining, Neuromuscular electrical stimulation for improved faciiltation of the pelvic floor.
--- NOTE | 2019-01-19 11:45 | PT.OPPOC ---
Current Diagnoses Low back pain (01/15/19) Cystocele, midline (01/15/19) Female genital prolapse, unspecified (01/15/19) Visit Care Team Role Provider Type Doctor MD Clark Primary Care Provider Non-Staff Specialty: Medical Address: Phone: Fax: Email: Other Providers Specialty: Address: Phone: Fax: Email: Yvonne Whitaker MD Attending Provider Physician Specialty: QUALITY ASSURANCE ASSESSOR Address: [address] [place] [address], [id number] Email: [email or web address] Plan Of Care PT-OP-T Assessment and Plan Start: 01/15/19 12:56 Freq: Status: Active Protocol: Document 01/15/19 13:00 [facility] (Rec: 01/19/19 11:33 [facility] [email or web address]) Physical Therapy Assessment Rehab Potential Rehabilitation Potential Good Evaluation Complexity Number of Personal Factors/Comorbidities 0 Number of Body Systems Impaired 1-2 Clinical Presentation at Evaluation Stable Impairments Impairments Activity Tolerance,Functional Activities,Pain,Posture,ROM, Soft Tissue Mobility,Strength, Tone Other Impairments pelvic floor weakness with pelvic organ prolapse and c/o heaviness limiting activity level Assessment Summary Assessment Louis presents to physical therapy today 5 months s/p vaginal delivery of her 7th baby. She notes with this last she began feeling more low back pain and pelvic pressure. At this time she is very limited with her activity level due to her pelvic pressure and low back pain especially with activities such as squatting or walking while carrying her baby in a pack. Hiking has become too painful and she reports pain with intercourse. She also describes embarrassing vaginal flatulence with exercise and intercourse. So much so that she has stopped engaging in these activities. With examination Louis presents with perineal descent which decreases support to the pelvic organs. She tests grade 2/5 MMT for all lee of the levator ani and has guarding present in the coccygeus. She has limited pelvic floor endurance and becomes fatigued quickly with contractions. A grade 2 uterine prolapse is felt today . Louis's lumbar paraspinals are in spasm and she is right rotated with visable right posterior thoracic wall. There is a positive Active SLR test on the left side demonstrating right sided SI instability. Her back pain is rated 7/10. I started Louis today with EMG biofeedback for improved awareness of her pelvic floor. She was also shown perineal mobilizations to begin working on scar tissue in this region . She will benefit from PT addressing improving perineal support by reducing scar tissue, improve pelvic floor strength and endurance, improving abdominal stabilization for the SI joint , lumbar spinal mobilizations and MFR to the paraspinals, stretches for the lumbar spine and hip musculature. She is a good candidate for PT Physical Therapy Plan Frequency and Duration Frequency of Treatment 1x/Week Duration of Treatment 8 Plan of Care Start Date 01/15/19 Plan of Care End Date 03/12/19 Therapeutic Interventions Therapeutic Interventions Home Exercise Program,Manual Therapy,Neuromuscular Re- education,Patient/Caregiver Education,Self-Care/Home Management,Soft Tissue Mobilization,Therapeutic Exercises Modalities Biofeedback,Electric Stimulation,Ultrasound Next Visit Focus/Plan Next Note Type Treatment Note Next Visit Plan Begin stretches for the lumbar spine into flexion, Transverse abdominus facilitation, EMG biofeedback with pelvic floor retraining, Neuromuscular electrical stimulation for improved facilitation of the pelvic floor. Plan of Care Dates Plan of Care Start Date 01/15/19 Plan of Care End Date 03/12/19
--- NOTE | 2019-02-07 17:47 | PT.OTN ---
Current Diagnoses Low back pain (02/07/19) Cystocele, midline (02/07/19) Female genital prolapse, unspecified (02/07/19) Physical Therapy Treatment Note PT-OP-A Visit Information Start: 01/15/19 12:56 Freq: Status: Active Protocol: Document 02/07/19 09:45 [facility] (Rec: 02/10/19 17:47 [facility] [email or web address]) Out-Patient Physical Therapy Visit Information Visit Information Visit Type Treatment Note Visit Start Time 09:45 Visit Stop Time 10:30 Total Visit Minutes 45 Visit Number 2 PT-OP-B Current Condition Start: 01/15/19 12:56 Freq: Status: Active Protocol: Document 01/15/19 13:00 [facility] (Rec: 01/15/19 13:12 [facility] [id number]) Current Condition History of Current Condition Onset Date with last , delivered August 16 Current Complaints c/o pelvic pressure and heaviness History of Current Condition Hx of 7 vaginal deliveries with the last one August 16. C/o heavyness, feels like something is falling out, hiking hurts or if she has to carry her toddler or walking and trying to carry anything. She reports the hike starts out fine but then starts to hurt. If someone else is carrying her baby it is better . Unable to go longer than a mile without pain, notes vaginal noises with pilates. Tore more with this delivery, second degree tear. Had a episiotomy with her first vaginal delivery as well forceps with her first. Prior to her last delivery she did not experiency laxity but she was noting leaking with sneezing. She doesn't drink any alcohol or caffiene. Drinks 1 32 oz bottle of water. Limits her water due to not wanting to have to go. Able to delay the need to void but when she uses the restroom she will feel like she has to go again soon. Wakes up at least 4 times per night to void. Experiencing LBP can get pins and needles in her feet. Treatment Goals Patient/Caregiver Goals Treatment goals include decreasing pelvic pressure and low back pain ADL's. 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 She is very sore in her lumbar spine today PT-OP-K Range of Motion Start: 01/16/19 09:50 Freq: Status: Active Protocol: Document 01/15/19 13:00 [facility] (Rec: 01/19/19 11:33 [facility] [email or web address]) Lumbar Spine Range of Motion Lumbar Spine Active Testing Position Standing Flexion 30 Lateral Flexion Left 10 Lateral Flexion Right 10 ROM Limitations Soft Tissue Tightness,Muscle Tone Comments pain increases with lumbar flexion PT-OP-Q Treatments Start: 01/15/19 12:56 Freq: Status: Active Protocol: Document 02/07/19 09:45 [facility] (Rec: 02/10/19 17:47 [facility] [email or web address]) Therapeutic Exercises Other Exercises 4 Other Exercise Name lio pose Reps/Minutes hold 1-2 minutes 3 Other Exercise Name pelvic floor long holds with EMG biofeedback Reps/Minutes 10 reps x 10 second hold 2 Other Exercise Name quadruped sidebends Reps/Minutes x 10 reps 1 Other Exercise Name cat cow Reps/Minutes x 10 reps Manual Therapy Treatment Soft Tissue Mobilization 2 Body Location perineal body mobilization Comments mobilizations upward and side to side to help decrease scar tissue 1 Body Location lumbar spine and pelvis Body Position Prone Comments prone soft tissue massage to the pelvis and low back Joint Mobilizations 1 Joint sacral mobilization into counternutation PT-OP-T Assessment and Plan Start: 01/15/19 12:56 Freq: Status: Active Protocol: Document 02/07/19 09:45 [facility] (Rec: 02/10/19 17:47 [facility] [email or web address]) Physical Therapy Assessment Assessment Summary Assessment Average contraction on EMG biofeedback today is 9.5 uv with a max of 16.2. This is good improvements. Lumbar paraspinals are very tight and guarded and her sacrum is in a nutated position. She tolerated sacral mobs well today Physical Therapy Plan Frequency and Duration Frequency of Treatment 1x/Week Duration of Treatment 8 Plan of Care Start Date 01/15/19 Plan of Care End Date 03/12/19 Therapeutic Interventions Therapeutic Interventions Home Exercise Program,Manual Therapy,Neuromuscular Re- education,Patient/Caregiver Education,Self-Care/Home Management,Soft Tissue Mobilization,Therapeutic Exercises Modalities Biofeedback,Electric Stimulation,Ultrasound Next Visit Focus/Plan Next Note Type Treatment Note Next Visit Plan continue to progress pelvic floor strength, work on stretches to reduce tension in the lumbar spine, sacral mobilizations, trial of elevating her pelvis on a bolster next visit to help reduce strain on her uterus
--- NOTE | 2019-02-14 15:56 | PT.OTN ---
Current Diagnoses Low back pain (02/14/19) Cystocele, midline (02/14/19) Female genital prolapse, unspecified (02/14/19) Physical Therapy Treatment Note PT-OP-A Visit Information Start: 01/15/19 12:56 Freq: Status: Active Protocol: Document 02/14/19 13:00 [facility] (Rec: 02/14/19 15:38 [facility] [email or web address]) Out-Patient Physical Therapy Visit Information Visit Information Visit Type Treatment Note Visit Start Time 13:00 Visit Stop Time 13:45 Total Visit Minutes 45 Visit Number 3 PT-OP-B Current Condition Start: 01/15/19 12:56 Freq: Status: Active Protocol: Document 01/15/19 13:00 [facility] (Rec: 01/15/19 13:12 [facility] [id number]) Current Condition History of Current Condition Onset Date with last , delivered August 16 Current Complaints c/o pelvic pressure and heaviness History of Current Condition Hx of 7 vaginal deliveries with the last one August 16. C/o heavyness, feels like something is falling out, hiking hurts or if she has to carry her toddler or walking and trying to carry anything. She reports the hike starts out fine but then starts to hurt. If someone else is carrying her baby it is better . Unable to go longer than a mile without pain, notes vaginal noises with pilates. Tore more with this delivery, second degree tear. Had a episiotomy with her first vaginal delivery as well forceps with her first. Prior to her last delivery she did not experiency laxity but she was noting leaking with sneezing. She doesn't drink any alcohol or caffiene. Drinks 1 32 oz bottle of water. Limits her water due to not wanting to have to go. Able to delay the need to void but when she uses the restroom she will feel like she has to go again soon. Wakes up at least 4 times per night to void. Experiencing LBP can get pins and needles in her feet. Treatment Goals Patient/Caregiver Goals Treatment goals include decreasing pelvic pressure and low back pain ADL's. 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 PT-OP-K Range of Motion Start: 01/16/19 09:50 Freq: Status: Active Protocol: Document 01/15/19 13:00 [facility] (Rec: 01/19/19 11:33 [facility] [email or web address]) Lumbar Spine Range of Motion Lumbar Spine Active Testing Position Standing Flexion 30 Lateral Flexion Left 10 Lateral Flexion Right 10 ROM Limitations Soft Tissue Tightness,Muscle Tone Comments pain increases with lumbar flexion PT-OP-Q Treatments Start: 01/15/19 12:56 Freq: Status: Active Protocol: Document 02/14/19 13:00 [facility] (Rec: 02/14/19 15:56 [facility] [email or web address]) Therapeutic Exercises Other Exercises 5 Other Exercise Name rolling on foam roll Reps/Minutes lumbar spine 4 Other Exercise Name lio pose Reps/Minutes hold 1-2 minutes 1 Other Exercise Name cat cow Reps/Minutes x 10 reps Neuro Re-Education Treatment Other Activities 1 Details long holds and quick flicks wiht sEMG Comments with sacrum on wedge, legs on bolster, and then knees bent. focus on breathing while delmar and relaxing. PT-OP-T Assessment and Plan Start: 01/15/19 12:56 Freq: Status: Active Protocol: Document 02/14/19 13:30 [facility] (Rec: 02/14/19 14:35 [facility] [id number]) Physical Therapy Assessment Assessment Summary Assessment MAx 11, avg 6. resting 2.5 for 10 second holds. Quick flicks 9.6 max 50 avg, 1.9 baseline. With the wedge. Showed her how to roll appropriately with her back on the foam roll she provided, and how to position wedge to get more posterior pelvic tilt for greater ease with pelvic floor contractions. Overall pt did feel it was easier with wedge, but continues to feel a challege, reinforced relaxation and breathing throughout. Physical Therapy Plan Next Visit Focus/Plan Next Note Type Treatment Note Next Visit Plan Louis had questions about appropriate exercise at the end of the appointment, specifically weightlifting. 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 progress pelvic floor strength, work on stretches to reduce tension in the lumbar spine, sacral mobilizations,
--- NOTE | 2019-02-19 18:07 | PT.OTN ---
Current Diagnoses Low back pain (02/19/19) Cystocele, midline (02/19/19) Female genital prolapse, unspecified (02/19/19) Physical Therapy Treatment Note PT-OP-A Visit Information Start: 01/15/19 12:56 Freq: Status: Active Protocol: Document 02/19/19 18:01 [facility] (Rec: 02/19/19 18:07 [facility] [id number]) Out-Patient Physical Therapy Visit Information Visit Information Visit Type Treatment Note Visit Start Time 11:25 Visit Stop Time 12:10 Total Visit Minutes 45 Visit Number 4 PT-OP-B Current Condition Start: 01/15/19 12:56 Freq: Status: Active Protocol: Document 01/15/19 13:00 [facility] (Rec: 01/15/19 13:12 [facility] [id number]) Current Condition History of Current Condition Onset Date with last , delivered August 16 Current Complaints c/o pelvic pressure and heaviness History of Current Condition Hx of 7 vaginal deliveries with the last one August 16. C/o heavyness, feels like something is falling out, hiking hurts or if she has to carry her toddler or walking and trying to carry anything. She reports the hike starts out fine but then starts to hurt. If someone else is carrying her baby it is better . Unable to go longer than a mile without pain, notes vaginal noises with pilates. Tore more with this delivery, second degree tear. Had a episiotomy with her first vaginal delivery as well forceps with her first. Prior to her last delivery she did not experiency laxity but she was noting leaking with sneezing. She doesn't drink any alcohol or caffiene. Drinks 1 32 oz bottle of water. Limits her water due to not wanting to have to go. Able to delay the need to void but when she uses the restroom she will feel like she has to go again soon. Wakes up at least 4 times per night to void. Experiencing LBP can get pins and needles in her feet. Treatment Goals Patient/Caregiver Goals Treatment goals include decreasing pelvic pressure and low back pain ADL's. 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 Functional Limitations- Recreation/ restrictions with hiking and Hobbies walking distance due to pelvic pain and heaviness, restrictions in bending and picking up her baby due to pain PT-OP-C Subjective Start: 01/15/19 12:56 Freq: Status: Active Protocol: Document 02/19/19 18:01 [facility] (Rec: 02/19/19 18:07 [facility] [id number]) OP-PT Subjective Patient Comments Patient Comments pt reports her back feels a little looser but she is still noting the pelvic heaviness PT-OP-K Range of Motion Start: 01/16/19 09:50 Freq: Status: Active Protocol: Document 01/15/19 13:00 [facility] (Rec: 01/19/19 11:33 [facility] [email or web address]) Lumbar Spine Range of Motion Lumbar Spine Active Testing Position Standing Flexion 30 Lateral Flexion Left 10 Lateral Flexion Right 10 ROM Limitations Soft Tissue Tightness,Muscle Tone Comments pain increases with lumbar flexion PT-OP-Q Treatments Start: 01/15/19 12:56 Freq: Status: Active Protocol: Document 02/19/19 18:01 [facility] (Rec: 02/19/19 18:07 [facility] [email or web address]) Therapeutic Exercises Other Exercises 10 Other Exercise Name pelvic floor ball squeeze with pelvic floor contraction 9 Other Exercise Name pelvic floor quick flicks Reps/Minutes x 10 reps 8 Other Exercise Name happy baby 7 Other Exercise Name piriformis stretch 6 Other Exercise Name TA facilitation in quadraped Reps/Minutes x 10 reps 4 Other Exercise Name lio pose Reps/Minutes hold 1-2 minutes 3 Other Exercise Name pelvic floor long holds with EMG biofeedback Reps/Minutes 10 reps x 10 second hold 2 Other Exercise Name quadruped sidebends Reps/Minutes x 10 reps 1 Other Exercise Name cat cow Reps/Minutes x 10 reps Manual Therapy Treatment Joint Mobilizations 1 Joint sacral mobilization into counternutation Manual Techniques 1 Type manual piriformis release Comments prone PT-OP-T Assessment and Plan Start: 01/15/19 12:56 Freq: Status: Active Protocol: Document 02/19/19 18:01 [facility] (Rec: 02/19/19 18:07 [facility] [email or web address]) Physical Therapy Assessment Assessment Summary Assessment Louis was placed on a wedge for pelvic floor exercises today. She could tell her back was more realxed prior to her exercises and felt she could feel her pelvic floor better. Her average was higher at 8.4 uv and max was 13.8 uv Physical Therapy Plan Next Visit Focus/Plan Next Note Type Treatment Note Next Visit Plan begin with 1/2 foam roll stretch, back streches, sacral release, progress pelvic floor strengthening exercises
--- NOTE | 2019-02-26 18:51 | PT.OTN ---
Current Diagnoses Low back pain (02/26/19) Cystocele, midline (02/26/19) Female genital prolapse, unspecified (02/26/19) Physical Therapy Treatment Note PT-OP-A Visit Information Start: 01/15/19 12:56 Freq: Status: Active Protocol: Document 02/26/19 18:45 [facility] (Rec: 02/26/19 18:51 [facility] [id number]) Out-Patient Physical Therapy Visit Information Visit Information Visit Type Treatment Note Visit Start Time 13:45 Visit Stop Time 14:30 Total Visit Minutes 45 Visit Number 5 PT-OP-B Current Condition Start: 01/15/19 12:56 Freq: Status: Active Protocol: Document 01/15/19 13:00 [facility] (Rec: 01/15/19 13:12 [facility] [id number]) Current Condition History of Current Condition Onset Date with last , delivered August 16 Current Complaints c/o pelvic pressure and heaviness History of Current Condition Hx of 7 vaginal deliveries with the last one August 16. C/o heavyness, feels like something is falling out, hiking hurts or if she has to carry her toddler or walking and trying to carry anything. She reports the hike starts out fine but then starts to hurt. If someone else is carrying her baby it is better . Unable to go longer than a mile without pain, notes vaginal noises with pilates. Tore more with this delivery, second degree tear. Had a episiotomy with her first vaginal delivery as well forceps with her first. Prior to her last delivery she did not experiency laxity but she was noting leaking with sneezing. She doesn't drink any alcohol or caffiene. Drinks 1 32 oz bottle of water. Limits her water due to not wanting to have to go. Able to delay the need to void but when she uses the restroom she will feel like she has to go again soon. Wakes up at least 4 times per night to void. Experiencing LBP can get pins and needles in her feet. Treatment Goals Patient/Caregiver Goals Treatment goals include decreasing pelvic pressure and low back pain ADL's. 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 Functional Limitations- Recreation/ restrictions with hiking and Hobbies walking distance due to pelvic pain and heaviness, restrictions in bending and picking up her baby due to pain PT-OP-C Subjective Start: 01/15/19 12:56 Freq: Status: Active Protocol: Document 02/26/19 18:45 [facility] (Rec: 02/26/19 18:51 [facility] [id number]) OP-PT Subjective Patient Comments Patient Comments pt reports her back is starting to feel better, she can feel her pelvic floor better now too for her exercises PT-OP-K Range of Motion Start: 01/16/19 09:50 Freq: Status: Active Protocol: Document 01/15/19 13:00 [facility] (Rec: 01/19/19 11:33 [facility] [email or web address]) Lumbar Spine Range of Motion Lumbar Spine Active Testing Position Standing Flexion 30 Lateral Flexion Left 10 Lateral Flexion Right 10 ROM Limitations Soft Tissue Tightness,Muscle Tone Comments pain increases with lumbar flexion PT-OP-Q Treatments Start: 01/15/19 12:56 Freq: Status: Active Protocol: Document 02/26/19 18:45 [facility] (Rec: 02/26/19 18:51 [facility] [id number]) Therapeutic Exercises Other Exercises 11 Other Exercise Name roll outs with theraband Reps/Minutes 3 x 10 reps 8 Other Exercise Name happy baby 7 Other Exercise Name piriformis stretch 6 Other Exercise Name TA facilitation in quadraped Reps/Minutes x 10 reps Comments added in opp arm lifts 5 Other Exercise Name rolling on foam roll Reps/Minutes lumbar spine 4 Other Exercise Name lio pose Reps/Minutes hold 1-2 minutes 3 Other Exercise Name pelvic floor long holds with EMG biofeedback Reps/Minutes 10 reps x 10 second hold 2 Other Exercise Name quadruped sidebends Reps/Minutes x 10 reps 1 Other Exercise Name cat cow Reps/Minutes x 10 reps Manual Therapy Treatment Soft Tissue Mobilization 1 Body Location lumbar spine and pelvis Body Position Prone Comments prone soft tissue massage to the pelvis and low back Joint Mobilizations 1 Joint sacral mobilization into counternutation Manual Techniques 1 Type manual piriformis release Comments prone PT-OP-T Assessment and Plan Start: 01/15/19 12:56 Freq: Status: Active Protocol: Document 02/26/19 18:45 [facility] (Rec: 02/26/19 18:51 [facility] [id number]) Physical Therapy Assessment Assessment Summary Assessment great increase in strength today to a average 10.4 and max of 16.2, still very tight right piriformis but ow back is starting to relax more. Did not elevate pelvs today for pelvic floor exercises but may do again next visit Physical Therapy Plan Frequency and Duration Frequency of Treatment 1x/Week Duration of Treatment 8 Plan of Care Start Date 01/15/19 Plan of Care End Date 03/12/19 Next Visit Focus/Plan Next Note Type Treatment Note Next Visit Plan begin with 1/2 foam roll stretch, back streches, sacral release, progress pelvic floor strengthening exercises
--- NOTE | 2019-03-12 17:56 | PT.OTN ---
Current Diagnoses Low back pain (03/12/19) Cystocele, midline (03/12/19) Female genital prolapse, unspecified (03/12/19) Physical Therapy Treatment Note PT-OP-A Visit Information Start: 01/15/19 12:56 Freq: Status: Active Protocol: Document 03/12/19 17:17 [facility] (Rec: 03/12/19 17:42 [facility] [email or web address]) Out-Patient Physical Therapy Visit Information Visit Information Visit Type Treatment Note Visit Start Time 15:15 Visit Stop Time 16:00 Total Visit Minutes 45 Visit Number 6 PT-OP-B Current Condition Start: 01/15/19 12:56 Freq: Status: Active Protocol: Document 01/15/19 13:00 [facility] (Rec: 01/15/19 13:12 [facility] [id number]) Current Condition History of Current Condition Onset Date with last , delivered August 16 Current Complaints c/o pelvic pressure and heaviness History of Current Condition Hx of 7 vaginal deliveries with the last one August 16. C/o heavyness, feels like something is falling out, hiking hurts or if she has to carry her toddler or walking and trying to carry anything. She reports the hike starts out fine but then starts to hurt. If someone else is carrying her baby it is better . Unable to go longer than a mile without pain, notes vaginal noises with pilates. Tore more with this delivery, second degree tear. Had a episiotomy with her first vaginal delivery as well forceps with her first. Prior to her last delivery she did not experiency laxity but she was noting leaking with sneezing. She doesn't drink any alcohol or caffiene. Drinks 1 32 oz bottle of water. Limits her water due to not wanting to have to go. Able to delay the need to void but when she uses the restroom she will feel like she has to go again soon. Wakes up at least 4 times per night to void. Experiencing LBP can get pins and needles in her feet. Treatment Goals Patient/Caregiver Goals Treatment goals include decreasing pelvic pressure and low back pain ADL's. 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 PT-OP-K Range of Motion Start: 01/16/19 09:50 Freq: Status: Active Protocol: Document 01/15/19 13:00 [facility] (Rec: 01/19/19 11:33 [facility] [email or web address]) Lumbar Spine Range of Motion Lumbar Spine Active Testing Position Standing Flexion 30 Lateral Flexion Left 10 Lateral Flexion Right 10 ROM Limitations Soft Tissue Tightness,Muscle Tone Comments pain increases with lumbar flexion PT-OP-Q Treatments Start: 01/15/19 12:56 Freq: Status: Active Protocol: Document 03/12/19 17:17 [facility] (Rec: 03/12/19 17:42 [facility] [email or web address]) Therapeutic Exercises Supine Exercises 2 Supine Exercise Name pelvic floor long holds x 10 second hold time Reps/Minutes x 10 reps 1 Supine Exercise Name piriformis stretch Comments and pt taught piriformis self release with tennis ball Sidelying Exercises 1 Sidelying Exercise Name clam shells Other Exercises 9 Other Exercise Name pelvic floor quick flicks Reps/Minutes x 10 reps 6 Other Exercise Name TA facilitation in quadraped Reps/Minutes x 10 reps Comments added in opp arm lifts and leg lifts 4 Other Exercise Name lio pose Reps/Minutes hold 1-2 minutes 2 Other Exercise Name quadruped sidebends Reps/Minutes x 10 reps 1 Other Exercise Name cat cow Reps/Minutes x 10 reps Manual Therapy Treatment Soft Tissue Mobilization 1 Body Location lumbar spine and pelvis Body Position Prone Comments prone soft tissue massage to the pelvis and low back Joint Mobilizations 1 Joint sacral mobilization into counternutation PT-OP-T Assessment and Plan Start: 01/15/19 12:56 Freq: Status: Active Protocol: Document 03/12/19 17:17 [facility] (Rec: 03/12/19 17:42 [facility] [email or web address]) Physical Therapy Assessment Goals Three Impairment c/o pelvic floor heaviness and pain with hiking Infection Control Manager Goal (LTG) Improve the shelf of support for the pelvic organs and Louis reports a overall reduction in pelvic heaviness and pain. GOAL NOT YET MET Two Impairment Poor endurance of the pelvci floor Short Term Goal (STG) Louis is able to increase her hold time to 10 seconds in supine GOAL MET STG Duration 5 weeks Infection Control Manager Goal (LTG) Louis is able to increase her hold time to 10 seconds in standing GOAL NOT YET MET LTG Duration 8 weeks One Impairment poor strength of the levator ani musculature Short Term Goal (STG) Louis is able ti increase strength of the anterior pelvic floor musculature and is able to feel the sensation of contraction. GOAL MET STG Duration 4 weeks Nursing Home Goal (LTG) Louis is able to improve her strength of the levator ani from 2/5 MMT to 3/5 MMT or better for improved pelvic organ support GOOD PROGRESS BUT STILL FEELING PELVIC HEAVINESS Assessment Summary Assessment Overall Louis has been showing good strength improvements with pelvic floor. We have been working on stretches and stabilization for the low back as well as Louis has been very tight and limited in her ROM in her low back. She has gotten some relief with her low back but this seems to be intermittent. Louis still reports pelvic heaviness when carrying her baby especially for activities such as hiking. She would benefit from continued PT Physical Therapy Plan Frequency and Duration Frequency of Treatment 1x/Week Duration of Treatment 8 Plan of Care Start Date 03/12/19 Plan of Care End Date 05/08/19 Next Visit Focus/Plan Next Note Type Treatment Note Next Visit Plan manual recheck of pelvic floor strength next visit and begin treatment with foam roller stretch for posture
--- NOTE | 2019-03-26 17:36 | PT.OTN ---
Current Diagnoses Low back pain (03/26/19) Cystocele, midline (03/26/19) Female genital prolapse, unspecified (03/26/19) Physical Therapy Treatment Note PT-OP-A Visit Information Start: 01/15/19 12:56 Freq: Status: Active Protocol: Document 03/26/19 17:29 [facility] (Rec: 03/26/19 17:34 [facility] [email or web address]) Out-Patient Physical Therapy Visit Information Visit Information Visit Type Treatment Note Visit Start Time 14:30 Visit Stop Time 15:15 Total Visit Minutes 45 Visit Number 7 PT-OP-B Current Condition Start: 01/15/19 12:56 Freq: Status: Active Protocol: Document 01/15/19 13:00 [facility] (Rec: 01/15/19 13:12 [facility] [id number]) Current Condition History of Current Condition Onset Date with last , delivered August 16 Current Complaints c/o pelvic pressure and heaviness History of Current Condition Hx of 7 vaginal deliveries with the last one August 16. C/o heavyness, feels like something is falling out, hiking hurts or if she has to carry her toddler or walking and trying to carry anything. She reports the hike starts out fine but then starts to hurt. If someone else is carrying her baby it is better . Unable to go longer than a mile without pain, notes vaginal noises with pilates. Tore more with this delivery, second degree tear. Had a episiotomy with her first vaginal delivery as well forceps with her first. Prior to her last delivery she did not experiency laxity but she was noting leaking with sneezing. She doesn't drink any alcohol or caffiene. Drinks 1 32 oz bottle of water. Limits her water due to not wanting to have to go. Able to delay the need to void but when she uses the restroom she will feel like she has to go again soon. Wakes up at least 4 times per night to void. Experiencing LBP can get pins and needles in her feet. Treatment Goals Patient/Caregiver Goals Treatment goals include decreasing pelvic pressure and low back pain ADL's. 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 PT-OP-K Range of Motion Start: 01/16/19 09:50 Freq: Status: Active Protocol: Document 01/15/19 13:00 [facility] (Rec: 01/19/19 11:33 [facility] [email or web address]) Lumbar Spine Range of Motion Lumbar Spine Active Testing Position Standing Flexion 30 Lateral Flexion Left 10 Lateral Flexion Right 10 ROM Limitations Soft Tissue Tightness,Muscle Tone Comments pain increases with lumbar flexion PT-OP-Q Treatments Start: 01/15/19 12:56 Freq: Status: Active Protocol: Document 03/26/19 17:29 [facility] (Rec: 03/26/19 17:34 [facility] [email or web address]) Therapeutic Exercises Supine Exercises 4 Supine Exercise Name TA with SLR 3 Supine Exercise Name TA with marches 2 Supine Exercise Name pelvic floor long holds x 10 second hold time Reps/Minutes x 10 reps 1 Supine Exercise Name piriformis stretch Comments and pt taught piriformis self release with tennis ball Other Exercises 11 Other Exercise Name templates for eccentric control and coordination Comments with EMG BIOFEEDBACK 10 Other Exercise Name roll outs with theraband 9 Other Exercise Name pelvic floor quick flicks Reps/Minutes x 10 reps 5 Other Exercise Name rolling on foam roll Reps/Minutes lumbar spine Manual Therapy Treatment Joint Mobilizations 1 Joint sacral mobilization into counternutation Manual Techniques 2 Type manual recheck of the pelvic floor strength Comments 3/5 MMT now and decreased guarding of the posterior wall 1 Type manual piriformis release Comments prone PT-OP-T Assessment and Plan Start: 01/15/19 12:56 Freq: Status: Active Protocol: Document 03/26/19 17:34 [facility] (Rec: 03/26/19 17:36 [facility] [email or web address]) Physical Therapy Assessment Assessment Summary Assessment improved strength of the pelvic floor with MMT today and decreased posterior wall guarding. She still shows perineal descent but it is not as severe as it was. Gave Louis a poise temporary pessary to try to see if this gives her support with walking Physical Therapy Plan Frequency and Duration Frequency of Treatment 1x/Week Duration of Treatment 8 Plan of Care Start Date 03/12/19 Plan of Care End Date 05/08/19 Next Visit Focus/Plan Next Note Type Treatment Note Next Visit Plan continue to progress pelvic floor strength and improved lumbar stability
--- NOTE | 2019-04-30 15:10 | PT.OTN ---
Current Diagnoses Low back pain (04/30/19) Cystocele, midline (04/30/19) Female genital prolapse, unspecified (04/30/19) Physical Therapy Treatment Note PT-OP-A Visit Information Start: 01/15/19 12:56 Freq: Status: Active Protocol: Document 04/30/19 13:00 [facility] (Rec: 05/05/19 15:10 [facility] [id number]) Out-Patient Physical Therapy Visit Information Visit Information Visit Type Treatment Note Visit Start Time 13:00 Visit Stop Time 13:45 Total Visit Minutes 45 Visit Number 8 PT-OP-B Current Condition Start: 01/15/19 12:56 Freq: Status: Active Protocol: Document 01/15/19 13:00 [facility] (Rec: 01/15/19 13:12 [facility] [id number]) Current Condition History of Current Condition Onset Date with last , delivered August 16 Current Complaints c/o pelvic pressure and heaviness History of Current Condition Hx of 7 vaginal deliveries with the last one August 16. C/o heavyness, feels like something is falling out, hiking hurts or if she has to carry her toddler or walking and trying to carry anything. She reports the hike starts out fine but then starts to hurt. If someone else is carrying her baby it is better . Unable to go longer than a mile without pain, notes vaginal noises with pilates. Tore more with this delivery, second degree tear. Had a episiotomy with her first vaginal delivery as well forceps with her first. Prior to her last delivery she did not experiency laxity but she was noting leaking with sneezing. She doesn't drink any alcohol or caffiene. Drinks 1 32 oz bottle of water. Limits her water due to not wanting to have to go. Able to delay the need to void but when she uses the restroom she will feel like she has to go again soon. Wakes up at least 4 times per night to void. Experiencing LBP can get pins and needles in her feet. Treatment Goals Patient/Caregiver Goals Treatment goals include decreasing pelvic pressure and low back pain ADL's. 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 She is doing better overall with pelvic pressure but it is still there . Without a load she is fine walking now Patient Reported Progress Improving PT-OP-K Range of Motion Start: 01/16/19 09:50 Freq: Status: Active Protocol: Document 01/15/19 13:00 [facility] (Rec: 01/19/19 11:33 [facility] [email or web address]) Lumbar Spine Range of Motion Lumbar Spine Active Testing Position Standing Flexion 30 Lateral Flexion Left 10 Lateral Flexion Right 10 ROM Limitations Soft Tissue Tightness,Muscle Tone Comments pain increases with lumbar flexion PT-OP-Q Treatments Start: 01/15/19 12:56 Freq: Status: Active Protocol: Document 04/30/19 13:00 [facility] (Rec: 05/05/19 15:10 [facility] [email or web address]) Therapeutic Exercises Supine Exercises 4 Supine Exercise Name TA with SLR 3 Supine Exercise Name TA with marches 2 Supine Exercise Name pelvic floor long holds x 10 second hold time Reps/Minutes x 10 reps 1 Supine Exercise Name piriformis stretch Comments and pt taught piriformis self release with tennis ball Other Exercises 6 Other Exercise Name TA facilitation in quadraped Reps/Minutes x 10 reps Comments added in opp arm lifts and leg lifts 4 Other Exercise Name lio pose Reps/Minutes hold 1-2 minutes 3 Other Exercise Name pelvic floor long holds with EMG biofeedback Reps/Minutes 10 reps x 10 second hold 2 Other Exercise Name quadruped sidebends Reps/Minutes x 10 reps 1 Other Exercise Name cat cow Reps/Minutes x 10 reps Manual Therapy Treatment Soft Tissue Mobilization 1 Body Location lumbar spine and pelvis Body Position Prone Comments prone soft tissue massage to the pelvis and low back PT-OP-T Assessment and Plan Start: 01/15/19 12:56 Freq: Status: Active Protocol: Document 04/30/19 13:00 [facility] (Rec: 05/05/19 15:10 [facility] [id number]) Physical Therapy Assessment Assessment Summary Assessment Louis demonstrates decreased pelvic floor symptoms overall and improved strength. She is still vulnerable with her back and her recent move to a new house flared her back. She is not able to do any further PT visits at this time due to lack of child's nurse but she feels independent with her home program at this time Physical Therapy Plan Discharge Physical Therapy Discharge Reasons No Longer Attending PT Discharge Comments Pt has made good overall progress. She is no longer able to attend PT due to child's nurse issues. She will be DC to independent [facility] at this time.
--- NOTE | 2019-05-05 15:13 | PT.OPDS ---
Current Diagnoses Low back pain (04/30/19) Cystocele, midline (04/30/19) Female genital prolapse, unspecified (04/30/19) Visit Care Team Role Provider Type Doctor MD Clark Primary Care Provider Non-Staff Specialty: Medical Address: Phone: Fax: Email: Other Providers Specialty: Address: Phone: Fax: Email: Yvonne Whitaker MD Attending Provider Physician Specialty: GRILL COOK Address: [address] [place] [address], [id number] Email: [email or web address] Visit Number Visit Number 8 Discharge Summary PT-OP-B Current Condition Start: 01/15/19 12:56 Freq: Status: Active Protocol: Document 01/15/19 13:00 [facility] (Rec: 01/15/19 13:12 [facility] [id number]) Current Condition History of Current Condition Onset Date with last , delivered August 16 Current Complaints c/o pelvic pressure and heaviness History of Current Condition Hx of 7 vaginal deliveries with the last one August 16. C/o heavyness, feels like something is falling out, hiking hurts or if she has to carry her toddler or walking and trying to carry anything. She reports the hike starts out fine but then starts to hurt. If someone else is carrying her baby it is better . Unable to go longer than a mile without pain, notes vaginal noises with pilates. Tore more with this delivery, second degree tear. Had a episiotomy with her first vaginal delivery as well forceps with her first. Prior to her last delivery she did not experiency laxity but she was noting leaking with sneezing. She doesn't drink any alcohol or caffiene. Drinks 1 32 oz bottle of water. Limits her water due to not wanting to have to go. Able to delay the need to void but when she uses the restroom she will feel like she has to go again soon. Wakes up at least 4 times per night to void. Experiencing LBP can get pins and needles in her feet. Treatment Goals Patient/Caregiver Goals Treatment goals include decreasing pelvic pressure and low back pain ADL's. 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 She is doing better overall with pelvic pressure but it is still there . Without a load she is fine walking now Patient Reported Progress Improving PT-OP-K Range of Motion Start: 01/16/19 09:50 Freq: Status: Active Protocol: Document 01/15/19 13:00 [facility] (Rec: 01/19/19 11:33 [facility] [email or web address]) Lumbar Spine Range of Motion Lumbar Spine Active Testing Position Standing Flexion 30 Lateral Flexion Left 10 Lateral Flexion Right 10 ROM Limitations Soft Tissue Tightness,Muscle Tone Comments pain increases with lumbar flexion PT-OP-T Assessment and Plan Start: 01/15/19 12:56 Freq: Status: Active Protocol: Document 04/30/19 13:00 [facility] (Rec: 05/05/19 15:10 [facility] [email or web address]) Physical Therapy Assessment Goals Three Impairment c/o pelvic floor heaviness and pain with hiking Wire Basket Maker Goal (LTG) Improve the shelf of support for the pelvic organs and Louis reports a overall reduction in pelvic heaviness and pain. GOOD OVERALL PROGRESS AND DECREASED C/O PELVIC PRESSURE NOW Two Impairment Poor endurance of the pelvci floor Short Term Goal (STG) Louis is able to increase her hold time to 10 seconds in supine GOAL MET STG Duration 5 weeks Nursing Home Goal (LTG) Louis is able to increase her hold time to 10 seconds in standing GOOD PROGRESS LTG Duration 8 weeks One Impairment poor strength of the levator ani musculature Short Term Goal (STG) Louis is able ti increase strength of the anterior pelvic floor musculature and is able to feel the sensation of contraction. GOAL MET STG Duration 4 weeks Wire Basket Maker Goal (LTG) Louis is able to improve her strength of the levator ani from 2/5 MMT to 3/5 MMT or better for improved pelvic organ support GOOD PROGRESS WITH DECREASED C /O PELVIC PRESSURE. Assessment Summary Assessment Louis demonstrates decreased pelvic floor symptoms overall and improved strength. She is still vulnerable with her back and her recent move to a new house flared her back. She is not able to do any further PT visits at this time due to lack of early childhood but she feels independent with her home program at this time Physical Therapy Plan Discharge Physical Therapy Discharge Reasons No Longer Attending PT Discharge Comments Pt has made good overall progress. She is no longer able to attend PT due to early childhood issues. She will be DC to independent [facility] at this time.
== END 2019-05-09 10:59 ==
LOC: PHYS 13:00
PROVIDERS: Visit Provider Specialist
DX: N81.9 Female genital prolapse, unspecified (principal); N81.11 Cystocele, midline; M54.5 Low back pain
CPT/HCPCS: 97110; 97112; 97140; 97161

== ENCOUNTER 2019-06-21 06:32 | Day surgery (SDC) | payer OTHER, MEDICAID, SELFPAY ==
[2019-06-18 10:27] VITALS: BMI 19.8
[2019-06-21] VITALS (13 sets, daily range): BP systolic 107–124; BP diastolic 64–88; PULSE 64–112; RESP 10–20; TEMP 36.5–37.7; O2SAT 91–99; BMI 19.3
--- NOTE | 2019-06-21 07:31 | PM.PREOP ---
Pre-operative Note Interval Note History & Physical reviewed/Exam performed by Physician: Yes Changes to H&P: No ASA Class (for procedural sedation): I
[2019-06-21] MEDS: LACTATED RINGERS 1,000 ML 42 ML IV ×3 (07:32→11:15)
[2019-06-21] MEDS: CEFOTETAN 2 GM/50 ML PIGGYBACK IV (07:44)
[2019-06-21] MEDS: BUPIVACAINE 0.5% W/ EPI (PF) 10 ML VIAL 30 ML INJ (08:04)
--- NOTE | 2019-06-21 08:10 | SUR.OPER ---
Lithotomy on padded OR bed, head on pillow, arms secured on padded arm boards at <90 degrees abduction. Legs secured in padded yellow fins stirrups and positioned by .
--- NOTE | 2019-06-21 08:56 | PM.GYNOP.1 ---
Operative Date/Time/Diagnoses Date of procedure: 06/21/19 Time of procedure: 08:56 Pre-op diagnosis: Gaping introitus Post-op diagnosis: same Procedure & Clinicians Procedure: Procedures Operation Date: 06/21/19 07:45 Actual Procedures Side Surgeon yara Perineorrhaphy Jeffrey Oliver MD Indications: Date being introitus Surgeon: Jeffrey Oliver Anesthesia Type: General Operative Notes Closure Type: primary Specimen(s): none Estimated blood loss (mL): 150 Blood products transfused: none Procedure in detail: The patient was placed supine upon the operating table and anesthetized. She was then placed in the dorsal lithotomy position. Patient had large gaping introitus which abated for fingers. Patient had only a small rectocele. The patient was then draped from. The usual fashion. Lateral edges of the perineum in the vestibule were grasped with Allis and brought to the midline to 2D to dmacate the line of closure. Wedge-shaped incisions were drawn with a marking pen. These were injected with 0.5% Marcaine 1 to [id number] epinephrine. Wedge-shaped piece of tissue removed on the perineum and in the vagina. Bleeders were meticulously fulgurated. There was a Rich vascular supply. The vaginal mucosa was then undermined. And the perineum was dissected down to the levators so they were easily visible and prominent. This having been done two 1. Vicryl sutures were placed through the levators and tied to the midline. This caused substantial closure of the perineal defect. The area the vagina was then closed to the introitus using two 0 chromic suture. The superficial diaphragm of the perineum including the bulbous cavernosus in transverse periei were then closed with interrupted 0 Vicryl suture. The two 0 chromic was then brought onto the perineum and a 2nd layer of closure of the superficial diaphragm was then done. This same suture was used to reapproximate the skin back to the vagina for good closure. The rectum was checked throughout the case to make sure there was no inadvertent rectal sutures. She was checked at the end as well. There were none. At the end of the procedure the perineum was well approximated without ecchymosis and the introitus had been closed completely. There was no bleeding at the end of the procedure. The patient was taken to the recovery room in satisfactory condition Complications: none Post-operative Condition: stable Disposition: PACU Plan for aftercare: Discharged home
--- NOTE | 2019-06-21 09:07 | PM.DS.1 ---
History of Present Illness History of Present Illness Date Patient Seen: 06/21/19 Time Patient Seen: 09:07 Chief complaint: 72041 Narrative: Patient with extreme perineal laxity causing air excretion during walking and exercise. Discharge Providers Provider Discharge Date: 06/21/19 Primary care physician: Doctor Clark MD Discharge provider: Jeffrey Oliver MD Summary Hospital Course Discharge Diagnosis: Perineal laxity Hospital Course: Patient was admitted to the hospital and underwent a perineorrhaphy without incident. She was discharged home for follow-up in two weeks Status at Discharge Cognitive/behavioral status at discharge: oriented Functional status at discharge: independent ambulation Overall status at discharge: patient is progressing back to baseline Time Spent with Patient Time spent: Less than 30 minutes Exam Vital Signs (past 8 hours): - 06/21/19 07:10 Temperature 98.0 F Pulse Rate 64 Respiratory Rate 20 Blood Pressure 108/73 Pulse Oximetry 97 Oxygen Delivery Method Room Air Narrative Exam Narrative: Perineum without ecchymosis Discharge Plan Discharge Plan Patient Disposition: Home Discharge Med Rec/Prescriptions Prescriptions: New oxycodone 10 mg tablet 10 mg PO Q4H PRN (Reason: pain) Qty: 10 RF: 0 Continued bupropion HCl [Wellbutrin XL] 150 mg tablet extended release 24 hr 150 mg PO QAM RF: 0 fluoxetine 20 mg capsule 20 mg PO DAILY RF: 0 Follow up/Referrals: Jeffrey Oliver MD [Physician] - 2 Weeks Discharge Orders: Discharge (Now); Ordered 06/21/19 Ordered By: Jeffrey Oliver Provider Discharge Instructions Diet: Diet as Tolerated Activity: Up ad tucker Other treatments: ice pack to perineum for 48 hrs Skin/Wound/Dressing Care Other wound treatment: keep perineum clean and dry Visit Report/Discharge Packet Stand Alone Forms: Surgery Discharge Discharge Data Primary Care Provider: Doctor Clark Attending Provider: Jeffrey Oliver
[2019-06-21] MEDS: HYDROMORPHONE 2 MG INJ IV ×3 (09:12→09:34)
[2019-06-21] MEDS: MEPERIDINE 50 MG/ML INJ 25 MG IV (09:31)
[2019-06-21] MEDS: fentaNYL 100 MCG/2 ML INJ IV ×2 (09:43→09:54)
[2019-06-21] MEDS: OXYCODONE/ACETAMINOPHEN 5/325 TABLET 1 TAB PO ×2 (09:46→10:39)
--- NOTE | 2019-06-21 10:19 | SUR.PHASEII ---
Pt transferred to OP still reporting pain level 6/10 even after receiving 1.5 dilaudid, 100 mcg of fentanyl, 25 of demerol for shaking, ice to donta region and 1 percocet just prior to transfer. Vital signs remained stable thru-out Phase 1. Pt was A/O x3 and no s/sx of N/V. Care was transferred to SUZY Cooper
--- NOTE | 2019-06-21 10:34 | SUR.PHASEII ---
Assumed care of pt. Ynes harrison on pt still with shakes. Prescription given to mom to fill per pt request.
--- NOTE | 2019-06-21 10:40 | SUR.PHASEII ---
Pt still present asked for additional pain med, medicated with 2nd percocet. Skakes better.
--- NOTE | 2019-06-21 11:49 | SUR.PHASEII ---
Pt up to BR to void. Steady when up, could note void, back to stretcher, bladder distended and scanned for 8[address] Oliver ordered In and out catheter to drain bladder, 775mls clear yellow urine drained.
--- NOTE | 2019-06-21 14:32 | SUR.PHASEII ---
Multiple numbers of Dr. Oliver called before finallly getting a hold of him, pt still not able to void a second time, bladder scanned and 632mls showed. Dr. Oliver made aware, instructed to In and Out cath pt again. Informed pt, pt asked if she could try to pee again, assisted to br, voided approximately 200mls, scanned again showed 361mls, Dr. Oliver informed and pt was aloowed to go home. D/C instructions discussed with both pt and her mom, added instructions to go to ER if she gets home and can not void per Dr. Oliver's instructions. Pt left in stable condition.
--- NOTE | 2019-06-21 15:14 | SUR.PHASEII ---
Late entry: Juliane pad changed 3 times, each with small amount bloody drainage.
== END 2019-06-21 13:36 | disposition home or self-care (01) ==
PROC: (CPT 56810; principal; 2019-06-21 07:45)
DX: N81.89 Other female genital prolapse (principal)
CPT/HCPCS: 56810; J1100; J1170; J1885; J2175; J2405; J2704; J3010

== ENCOUNTER 2019-06-22 13:44 | Emergency (ER) | payer OTHER, MEDICAID, SELFPAY ==
[2019-06-22 13:49] VITALS: BP 126/60; PULSE 87; RESP 24; TEMP 36.4; O2SAT 99; BMI 21.2
[2019-06-22] MEDS: SODIUM CHLORIDE 0.9% 1,000 ML 1000 ML IV ×2 (14:06→15:55)
[2019-06-22 14:10] LABS: Add Manual Diff / Slide Review NO; Basophils Absolute Auto 0 /uL (0-100); Basophils Percent Auto 0.3 % (0-2); Eosinophils Absolute Auto 100 /uL (0-450); Hematocrit 36.4 % (36-46); Hemoglobin 12.2 g/dL (12.0-16.0); Lymphocytes Absolute Auto 1200 /uL (1100-4500); Lymphocytes Percent Auto 13.4 % (25-40); Mean Corpuscular HGB Conc 33.5 % (30-36); Mean Corpuscular Hemoglobin 30.1 PG (26-34); Mean Corpuscular Volume 89.7 fL (80-100); Monocytes Absolute Auto 400 /uL (0-900); Monocytes Percent Auto 4.8 % (3-14); Neutrophils Absolute Auto 7400 /uL (1500-7000); Neutrophils Percent Auto 80.5 % (50-75); Platelet Count 243 X10^3/uL (150-400); Red Blood Cell Count 4.05 X10^6/uL (4.0-5.2); White Blood Cell Count 9.2 X10^3/uL (4.5-11.0)
[2019-06-22] MEDS: MORPHINE 4 MG/ML INJ IV (14:13)
[2019-06-22] MEDS: ONDANSETRON 4 MG/2 ML INJ IV ×2 (14:13→15:55)
--- NOTE | 2019-06-22 14:16 | ED.NAVMDI ---
HPI - Nausea/Vomiting/Diarrhea <DAVEY Romero - Last Filed: 06/22/19 19:47> General Chief complaint: Nausea/Vomiting/Diarrhea Stated complaint: surgery yesterday, vomiting, pain Time Seen by Provider: 06/22/19 13:56 Source: patient and family Mode of arrival: Ambulatory Limitations: no limitations History of Present Illness HPI Narrative: The patient is a 34-year-old female nonsmoker complaint of pain, vomiting and chills with sudden onset at midnight. She had surgery by Dr. Oliver yesterday as she had a perinerrhapy. She denies any fevers, does complaint of vomiting. She states that she is still taking her pain medication, was able to take oxycodone and Motrin so far this morning. She states her pain is worse today. She states last bowel movement was prior to surgery. She has not been taking anything postop other than oxycodone and Motrin. She states she is having a hard time keeping down food. Related Data Home Medications Medication Instructions Recorded Confirmed bupropion HCl 150 mg 24 hr tablet, 150 mg PO QAM 05/14/19 06/21/19 extended release fluoxetine 20 mg capsule 20 mg PO DAILY 06/14/19 06/21/19 Previous Rx's Medication Instructions Recorded oxycodone 10 mg PO Q4H PRN #10 tab 06/21/19 hydrocodone-acetaminophen 1 tab PO Q4-6H PRN #10 tab 06/22/19 ibuprofen [IBU] 800 mg PO Q6H PRN #20 tab 06/22/19 ondansetron 4 mg PO Q6H PRN #20 tab 06/22/19 Allergies Allergy/AdvReac Type Severity Reaction Status Date / Time metoclopramide [From Reglan] Allergy Unknown heart races Verified 06/21/19 07:05 adhesive AdvReac Intermediate ITCHING Verified 06/21/19 07:37 Review of Systems <DAVEY Romero - Last Filed: 06/22/19 19:47> Review of Systems Narrative: GENERAL: See HPI HEENT: Denies sinus pain, ear pain, sore throat, difficulty swallowing, dizziness. RESPIRATORY: Denies dyspnea, cough, wheezing, hemoptysis, sputum. CARDIOVASCULAR: Denies chest pain, palpitations, orthopnea, edema, GASTROINTESTINAL: See HPI : See HPI MUSCULOSKELETAL: denies weakness, joint pain, or bony pain SKIN: Denies rash, skin lesions, or other NEUROLOGIC: Denies weakness, headache, numbness, change in speech, confusion, seizures, incoordination. PSYCHIATRIC: No concerning psychosocial issues. 12 point review of systems is negative except for those stated above Patient History <DAVEY Romero - Last Filed: 06/22/19 19:47> Medical History (Updated 06/22/19 @ 18:17 by DAVEY Romero) Anemia (Resolved) Anorexia nervosa (Inactive ~2003) Carpal tunnel syndrome (Resolved) Migraines (Acute ~1995) Surgical History (Updated 06/18/19 @ 10:42 by Eneida Leigh RN) Anesthesia (Resolved) Cyst (Resolved ~2015) History of breast augmentation (Resolved ~2016) History of surgery (Acute) Family History (Updated 01/07/19 @ 21:52 by Clare Rosa) Father Hypertension Mother Breast cancer History of bipolar disorder Grandfather Stroke Grandmother Breast cancer Grandfather Liver cirrhosis Social History household members: spouse and children Smoking Status: Never smoker alcohol intake: current Smoking Status: Never smoker alcohol intake frequency: holidays/special occasions only Substance Use Type: does not use Exam <DAVEY Romero - Last Filed: 06/22/19 19:47> Narrative Exam Narrative: GENERAL: Thin female, appears uncomfortable HEAD: Atraumatic. Normocephalic. No temporal or scalp tenderness. EYES: Pupils equal round and reactive. Extraocular motions intact. No scleral icterus. No injection or drainage. ENT: Nose without bleeding, purulent drainage or septal hematoma. Throat without erythema, tonsillar hypertrophy or exudate. Uvula midline. Airway patent. NECK: Trachea midline. No JVD or lymphadenopathy. Supple, nontender, no meningeal signs. CARDIOVASCULAR: Regular rate and rhythm RESPIRATORY: Clear to auscultation. Breath sounds equal bilaterally. No wheezes, rales, or rhonchi. No cough. No lesions noted. No accessory muscle use. GASTROINTESTINAL: Abdomen soft, non-tender, nondistended. No hepato-splenomegaly, or palpable masses. No guarding. Active bowel sounds all 4 quadrants EXTREMITIES: No clubbing, cyanosis, or edema. No joint tenderness, effusion, or edema noted. BACK: Nontender without deformity or crepitance. No flank tenderness. NEURO: AOx3. SKIN: No rash or erythema. External genitalia exam done with Elizabeth RN at bedside. Ecchymotic. No palpable fluctuance. No focal redness. Initial Vital Signs Initial Vital Signs: Vital Signs Temperature 97.6 F 06/22/19 13:49 Pulse Rate 87 06/22/19 13:49 Respiratory Rate 24 06/22/19 13:49 Blood Pressure 126/60 06/22/19 13:49 Pulse Oximetry 99 06/22/19 13:49 <Jassi Bustamante DO - Last Filed: 06/22/19 19:56> Initial Vital Signs Initial Vital Signs: Vital Signs Temperature 97.6 F 06/22/19 13:49 Pulse Rate 87 06/22/19 13:49 Respiratory Rate 24 06/22/19 13:49 Blood Pressure 126/60 06/22/19 13:49 Pulse Oximetry 99 06/22/19 13:49 Course <DAVEY Romero - Last Filed: 06/22/19 19:47> Orders Ordered: ED Orders 06/22/19 14:00 Complete Blood Count AUTO DIFF Stat Comprehensive Metabolic Panel Stat Lactate (Lactic Acid) Stat Lipase Stat Partial Thromboplastin Time Stat Procalcitonin Stat Prothrombin Time INR Stat 06/22/19 14:50 Blood Culture Stat Discontinued Medications Hydrocodone Bitart/Acetaminophen ([place] 5/325) 1 tab PO NOW ONE Stop: 06/22/19 16:55 Last Admin: 06/22/19 17:13 Dose: 1 tab Documented by: LATA Hydrocodone Bitart/Acetaminophen (Vicodin 5/325 Prepack) 1 bottle MISC SEEINSTR ONE Stop: 06/22/19 17:51 Last Admin: 06/22/19 18:15 Dose: 1 bottle Documented by: LATA Sodium Chloride (Normal Saline 0.9%) 1,000 mls @ 1,000 mls/hr IV BOLUS ONE Stop: 06/22/19 14:57 Last Infusion: 06/22/19 15:21 Dose: 0 mls/hr Documented by: Admin: 06/22/19 14:06 Dose: 1,000 mls/hr Documented by: KAREN Sodium Chloride (Normal Saline 0.9%) 1,000 mls @ 1,000 mls/hr IV BOLUS PRN PRN Reason: Fluid replacement Last Infusion: 06/22/19 17:12 Dose: 0 mls/hr Documented by: Admin: 06/22/19 15:55 Dose: 1,000 mls/hr Documented by: LATA Morphine Sulfate (Morphine) 4 mg IV NOW ONE Stop: 06/22/19 14:06 Last Admin: 06/22/19 14:13 Dose: 4 mg Documented by: SUSIE Morphine Sulfate (Morphine) 2 mg IV NOW ONE Stop: 06/22/19 16:09 Last Admin: 06/22/19 16:20 Dose: 2 mg Documented by: LATA Ondansetron HCl (Zofran) 4 mg IV NOW ONE Stop: 06/22/19 14:03 Last Admin: 06/22/19 14:13 Dose: 4 mg Documented by: SUSIE Ondansetron HCl (Zofran) 4 mg IV NOW ONE Stop: 06/22/19 15:26 Last Admin: 06/22/19 15:55 Dose: 4 mg Documented by: LATA Ondansetron HCl (Zofran Odt Prepack) 1 bottle MISC SEEINSTR ONE Stop: 06/22/19 17:51 Last Admin: 06/22/19 18:17 Dose: 1 bottle Documented by: LATA Vital Signs Vital signs: Vital Signs - 8 hr 06/22/19 13:49 06/22/19 14:33 06/22/19 16:00 Temperature 97.6 F Pulse Rate 87 77 75 Respiratory Rate 24 13 20 Blood Pressure 126/60 Blood Pressure [Right Arm] 93/54 L 96/56 L Pulse Oximetry 99 97 97 06/22/19 17:00 06/22/19 18:20 06/22/19 19:02 Temperature Pulse Rate 70 76 86 Respiratory Rate 12 16 16 Blood Pressure Blood Pressure [Right Arm] 101/77 92/55 L 104/58 L Pulse Oximetry 96 96 98 <Jassi Bustamante DO - Last Filed: 06/22/19 19:56> Orders Ordered: ED Orders 06/22/19 14:00 Complete Blood Count AUTO DIFF Stat Comprehensive Metabolic Panel Stat Lactate (Lactic Acid) Stat Lipase Stat Partial Thromboplastin Time Stat Procalcitonin Stat Prothrombin Time INR Stat 06/22/19 14:50 Blood Culture Stat Discontinued Medications Hydrocodone Bitart/Acetaminophen ([place] 5/325) 1 tab PO NOW ONE Stop: 06/22/19 16:55 Last Admin: 06/22/19 17:13 Dose: 1 tab Documented by: LATA Hydrocodone Bitart/Acetaminophen (Vicodin 5/325 Prepack) 1 bottle MISC SEEINSTR ONE Stop: 06/22/19 17:51 Last Admin: 06/22/19 18:15 Dose: 1 bottle Documented by: LATA Sodium Chloride (Normal Saline 0.9%) 1,000 mls @ 1,000 mls/hr IV BOLUS ONE Stop: 06/22/19 14:57 Last Infusion: 06/22/19 15:21 Dose: 0 mls/hr Documented by: Admin: 06/22/19 14:06 Dose: 1,000 mls/hr Documented by: KAREN Sodium Chloride (Normal Saline 0.9%) 1,000 mls @ 1,000 mls/hr IV BOLUS PRN PRN Reason: Fluid replacement Last Infusion: 06/22/19 17:12 Dose: 0 mls/hr Documented by: Admin: 06/22/19 15:55 Dose: 1,000 mls/hr Documented by: LATA Morphine Sulfate (Morphine) 4 mg IV NOW ONE Stop: 06/22/19 14:06 Last Admin: 06/22/19 14:13 Dose: 4 mg Documented by: SUSIE Morphine Sulfate (Morphine) 2 mg IV NOW ONE Stop: 06/22/19 16:09 Last Admin: 06/22/19 16:20 Dose: 2 mg Documented by: LATA Ondansetron HCl (Zofran) 4 mg IV NOW ONE Stop: 06/22/19 14:03 Last Admin: 06/22/19 14:13 Dose: 4 mg Documented by: SUSIE Ondansetron HCl (Zofran) 4 mg IV NOW ONE Stop: 06/22/19 15:26 Last Admin: 06/22/19 15:55 Dose: 4 mg Documented by: LATA Ondansetron HCl (Zofran Odt Prepack) 1 bottle MISC SEEINSTR ONE Stop: 06/22/19 17:51 Last Admin: 06/22/19 18:17 Dose: 1 bottle Documented by: LATA Vital Signs Vital signs: Vital Signs - 8 hr 06/22/19 13:49 06/22/19 14:33 06/22/19 16:00 Temperature 97.6 F Pulse Rate 87 77 75 Respiratory Rate 24 13 20 Blood Pressure 126/60 Blood Pressure [Right Arm] 93/54 L 96/56 L Pulse Oximetry 99 97 97 06/22/19 17:00 06/22/19 18:20 06/22/19 19:02 Temperature Pulse Rate 70 76 86 Respiratory Rate 12 16 16 Blood Pressure Blood Pressure [Right Arm] 101/77 92/55 L 104/58 L Pulse Oximetry 96 96 98 MDM - Nausea/Vomiting/Diarrhea <KOLE Romero- - Last Filed: 06/22/19 19:47> Lab Data Result diagrams: 06/22/19 14:00 06/22/19 14:00 Labs: Lab Results 06/22/19 06/22/19 06/22/19 Range/Units 14:00 14:00 14:00 WBC 9.2 (4.5-11.0) X10^3/uL RBC 4.05 (4.0-5.2) X10^6/uL Hgb 12.2 (12.0-16.0) g/dL Hct 36.4 (36-46) % MCV 89.7 (80-100) fL MCH 30.1 (26-34) PG MCHC 33.5 (30-36) % RDW 13.0 (11.6-14.8) % Plt Count 243 (150-400) X10^3/uL Neut % (Auto) 80.5 H (50-75) % Lymph % (Auto) 13.4 L (25-40) % [place] % (Auto) 4.8 (3-14) % Eos % (Auto) 1.0 L (2-4) % Baso % (Auto) 0.3 (0-2) % Neut # (Auto) 7400 H (4055-7799) /uL Lymph # (Auto) 1200 (6226-6143) /uL [place] # (Auto) 400 (0-900) /uL Eos # (Auto) 100 (0-450) /uL Baso # (Auto) 0 (0-100) /uL PT 12.3 (10.1-12.7) SECONDS INR 1.1 (0.9-1.3) APTT 31 (26.4-36.2) SECONDS Sodium (137-145) mmol/L Potassium (3.4-5.1) mmol/L Chloride (98-107) mmol/L Carbon Dioxide (22-32) mmol/L BUN (7-17) mg/dL Creatinine (0.52-1.04) mg/dL Estimated GFR (>60) mL/min BUN/Creatinine Ratio (6-22) Glucose (70-100) mg/dL Lactate (0.7-2.1) mmol/L Calcium (8.4-10.2) mg/dL Total Bilirubin (0.2-1.3) mg/dL AST (14-36) IU/L ALT (<35) IU/L Alkaline Phosphatase (38-126) U/L Total Protein (6.3-8.2) g/dL Albumin (3.5-5.0) g/dL Globulin (1.7-4.1) g/dL Albumin/Globulin Ratio (1.0-2.8) Lipase (23-300) U/L Procalcitonin < 0.05 (<0.5) ng/mL 06/22/19 06/22/19 Range/Units 14:00 14:00 WBC (4.5-11.0) X10^3/uL RBC (4.0-5.2) X10^6/uL Hgb (12.0-16.0) g/dL Hct (36-46) % MCV (80-100) fL MCH (26-34) PG MCHC (30-36) % RDW (11.6-14.8) % Plt Count (150-400) X10^3/uL Neut % (Auto) (50-75) % Lymph % (Auto) (25-40) % [place] % (Auto) (3-14) % Eos % (Auto) (2-4) % Baso % (Auto) (0-2) % Neut # (Auto) (6145-5104) /uL Lymph # (Auto) (7318-4833) /uL [place] # (Auto) (0-900) /uL Eos # (Auto) (0-450) /uL Baso # (Auto) (0-100) /uL PT (10.1-12.7) SECONDS INR (0.9-1.3) APTT (26.4-36.2) SECONDS Sodium 140 (137-145) mmol/L Potassium 4.1 (3.4-5.1) mmol/L Chloride 107 (98-107) mmol/L Carbon Dioxide 20 L (22-32) mmol/L BUN 12 (7-17) mg/dL Creatinine 0.80 (0.52-1.04) mg/dL Estimated GFR > 60.0 (>60) mL/min BUN/Creatinine Ratio 15.0 (6-22) Glucose 79 (70-100) mg/dL Lactate 1.5 (0.7-2.1) mmol/L Calcium 8.9 (8.4-10.2) mg/dL Total Bilirubin 0.4 (0.2-1.3) mg/dL AST 26 (14-36) IU/L ALT 21 (<35) IU/L Alkaline Phosphatase 76 (38-126) U/L Total Protein 7.2 (6.3-8.2) g/dL Albumin 4.3 (3.5-5.0) g/dL Globulin 2.9 (1.7-4.1) g/dL Albumin/Globulin Ratio 1.5 (1.0-2.8) Lipase 110 (23-300) U/L Procalcitonin (<0.5) ng/mL Point of Care Testing Test Results Negative Urine Dip Bedside Urine Glucose Negative Bedside Urine Bilirubin - Negative Bedside Urine Ketone ++ 40 Urine Specific Simon 1.010 Bedside Urine Occult Blood - Negative Bedside Urine pH 5.5 Bedside Urine Protein - Negative Bedside Urine Urobilinogen - Negative Bedside Urine Nitrite - Negative Bedside Urine Leukocytes - Negative Esterase MDM Narrative Medical decision making narrative: The patient is a 34-year-old female nonsmoker presents with a chief complaint of vomiting and pain post operative. She had a perineal repair done by Dr. Oliver yesterday. It is reassuring that she is afebrile, not tachycardic,. She has no leukocytosis, no lactate, no elevation of procalcitonin. She has no obvious abscess on exam. She feels much improved with the above-stated therapies. It is possible that her reaction today with vomiting and inability keep down fluids his due to her oxycodone. We elected to do a trial of Percocet. I spoke with both Dr. Fierro and Dr. Oliver regarding this patient. They do not warrant further imaging at this point in time as the patient responded well to above-stated therapies has normal lab work. She will going to see Dr. Oliver at 8:30 a.m. on Monday. The patient was able to keep down to use, ice, crackers and some yogurt in the emergency department. She was given take-home packs. I discussed at length coming back to the emergency department for any acute concerns. We discussed use of Toradol, but elected to use ibuprofen 800 as the patient still breast-feeding. Patient has no questions or concerns upon discharge and states understanding of return precautions as well as follow-up care. <Jassi Bustamante, - Last Filed: 06/22/19 19:56> Lab Data Labs: Lab Results 06/22/19 06/22/19 06/22/19 Range/Units 14:00 14:00 14:00 WBC 9.2 (4.5-11.0) X10^3/uL RBC 4.05 (4.0-5.2) X10^6/uL Hgb 12.2 (12.0-16.0) g/dL Hct 36.4 (36-46) % MCV 89.7 (80-100) fL MCH 30.1 (26-34) PG MCHC 33.5 (30-36) % RDW 13.0 (11.6-14.8) % Plt Count 243 (150-400) X10^3/uL Neut % (Auto) 80.5 H (50-75) % Lymph % (Auto) 13.4 L (25-40) % [place] % (Auto) 4.8 (3-14) % Eos % (Auto) 1.0 L (2-4) % Baso % (Auto) 0.3 (0-2) % Neut # (Auto) 7400 H (1377-8728) /uL Lymph # (Auto) 1200 (9711-3944) /uL [place] # (Auto) 400 (0-900) /uL Eos # (Auto) 100 (0-450) /uL Baso # (Auto) 0 (0-100) /uL PT 12.3 (10.1-12.7) SECONDS INR 1.1 (0.9-1.3) APTT 31 (26.4-36.2) SECONDS Sodium (137-145) mmol/L Potassium (3.4-5.1) mmol/L Chloride (98-107) mmol/L Carbon Dioxide (22-32) mmol/L BUN (7-17) mg/dL Creatinine (0.52-1.04) mg/dL Estimated GFR (>60) mL/min BUN/Creatinine Ratio (6-22) Glucose (70-100) mg/dL Lactate (0.7-2.1) mmol/L Calcium (8.4-10.2) mg/dL Total Bilirubin (0.2-1.3) mg/dL AST (14-36) IU/L ALT (<35) IU/L Alkaline Phosphatase (38-126) U/L Total Protein (6.3-8.2) g/dL Albumin (3.5-5.0) g/dL Globulin (1.7-4.1) g/dL Albumin/Globulin Ratio (1.0-2.8) Lipase (23-300) U/L Procalcitonin < 0.05 (<0.5) ng/mL 06/22/19 06/22/19 Range/Units 14:00 14:00 WBC (4.5-11.0) X10^3/uL RBC (4.0-5.2) X10^6/uL Hgb (12.0-16.0) g/dL Hct (36-46) % MCV (80-100) fL MCH (26-34) PG MCHC (30-36) % RDW (11.6-14.8) % Plt Count (150-400) X10^3/uL Neut % (Auto) (50-75) % Lymph % (Auto) (25-40) % [place] % (Auto) (3-14) % Eos % (Auto) (2-4) % Baso % (Auto) (0-2) % Neut # (Auto) (1866-2040) /uL Lymph # (Auto) (8249-9613) /uL [place] # (Auto) (0-900) /uL Eos # (Auto) (0-450) /uL Baso # (Auto) (0-100) /uL PT (10.1-12.7) SECONDS INR (0.9-1.3) APTT (26.4-36.2) SECONDS Sodium 140 (137-145) mmol/L Potassium 4.1 (3.4-5.1) mmol/L Chloride 107 (98-107) mmol/L Carbon Dioxide 20 L (22-32) mmol/L BUN 12 (7-17) mg/dL Creatinine 0.80 (0.52-1.04) mg/dL Estimated GFR > 60.0 (>60) mL/min BUN/Creatinine Ratio 15.0 (6-22) Glucose 79 (70-100) mg/dL Lactate 1.5 (0.7-2.1) mmol/L Calcium 8.9 (8.4-10.2) mg/dL Total Bilirubin 0.4 (0.2-1.3) mg/dL AST 26 (14-36) IU/L ALT 21 (<35) IU/L Alkaline Phosphatase 76 (38-126) U/L Total Protein 7.2 (6.3-8.2) g/dL Albumin 4.3 (3.5-5.0) g/dL Globulin 2.9 (1.7-4.1) g/dL Albumin/Globulin Ratio 1.5 (1.0-2.8) Lipase 110 (23-300) U/L Procalcitonin (<0.5) ng/mL Point of Care Testing Test Results Negative Urine Dip Bedside Urine Glucose Negative Bedside Urine Bilirubin - Negative Bedside Urine Ketone ++ 40 Urine Specific Simon 1.010 Bedside Urine Occult Blood - Negative Bedside Urine pH 5.5 Bedside Urine Protein - Negative Bedside Urine Urobilinogen - Negative Bedside Urine Nitrite - Negative Bedside Urine Leukocytes - Negative Esterase Discharge Plan Departure Patient Disposition: Home Clinical Impression: Post-operative pain, Postoperative vomiting Discharge Date/Time: 06/22/19 19:38 Instructions: DI for Acute Pain -- Adult, DI for Vomiting -- Adult Activity Restrictions/Additional Instructions: Dr Oliver would like you to be seen in his office at 8:30 a.m. on Monday I have sent different prescriptions of pain medicine to [facility] in [place]. Do not combine the oxycodone with the hydrocodone/Tylenol. This could be too sedating. Please monitor for any fever, inability keep down fluids etcetera. Please come back to emergency department for any acute concerns. I have given you a prescription of a narcotic for pain. Be aware that this can be constipating and sedating. I encouraged taking with a stool softener, pushing fluids and fiber. Do not take and drive, operate heavy machinery, etc. Do not combine it with any other sedating substances such as alcohol. The combination of narcotics and alcohol and/or other sedatives can be lethal. Please be aware that we do not provide refills of controlled substances in the emergency department. Please follow up with her primary care provider. I have given you a prescription of ibuprofen 800. This is an NSAID. Do not combine it with other NSAIDs such as Aleve or Toradol or meloxicam. I suggest taking it with some food, as it can irritate your stomach. Prescriptions: New hydrocodone-acetaminophen 5-325 mg tablet 1 tab PO Q4-6H PRN (Reason: pain) Qty: 10 RF: 0 ibuprofen [IBU] 800 mg tablet 800 mg PO Q6H PRN (Reason: pain) Qty: 20 RF: 0 ondansetron 4 mg tablet,disintegrating 4 mg PO Q6H PRN (Reason: nausea and vomiting) Qty: 20 RF: 0 No Action bupropion HCl [Wellbutrin XL] 150 mg tablet extended release 24 hr 150 mg PO QAM RF: 0 fluoxetine 20 mg capsule 20 mg PO DAILY RF: 0 oxycodone 10 mg tablet 10 mg PO Q4H PRN (Reason: pain) Qty: 10 RF: 0 Referrals: Miscellaneous,Doctor, [Primary Care Provider] - Jeffrey Oliver MD [Physician] -
[2019-06-22 14:18] LABS: INR 1.1 (0.9-1.3); Prothrombin Time 12.3 SECONDS (10.1-12.7)
[2019-06-22 14:21] LABS: PTT Partial Thromboplastin Tim 31 SECONDS (26.4-36.2)
[2019-06-22 14:22] LABS: Alanine Aminotransferase 21 IU/L (<35); Albumin 4.3 g/dL (3.5-5.0); Albumin Globulin Ratio 1.5 (1.0-2.8); Alkaline Phosphatase 76 U/L (38-126); Aspartate Aminotransferase 26 IU/L (14-36); Bilirubin Total 0.4 mg/dL (0.2-1.3); Blood Urea Nitrogen 12 mg/dL (7-17); Calcium 8.9 mg/dL (8.4-10.2); Carbon Dioxide 20 mmol/L (22-32); Chloride 107 mmol/L (98-107); Estimated Glomerular Filt Rate > 60.0 mL/min (>60); Globulin 2.9 g/dL (1.7-4.1); Glucose 79 mg/dL (70-100); HEMOLYSIS < 15 (0-50); Lipase 110 U/L (23-300); Potassium 4.1 mmol/L (3.4-5.1); Sodium 140 mmol/L (137-145); Total Protein 7.2 g/dL (6.3-8.2)
[2019-06-22 14:23] LABS: Lactate (Lactic Acid) 1.5 mmol/L (0.7-2.1)
[2019-06-22 14:33] VITALS: BP 93/54; PULSE 77; RESP 13; O2SAT 97
[2019-06-22 14:40] LABS: Procalcitonin < 0.05 ng/mL (<0.5)
[2019-06-22 16:00] VITALS: BP 96/56; PULSE 75; RESP 20; O2SAT 97
[2019-06-22] MEDS: MORPHINE 2 MG/ML INJ IV (16:20)
[2019-06-22 17:00] VITALS: BP 101/77; PULSE 70; RESP 12; O2SAT 96
[2019-06-22] MEDS: HYDROCODONE/ACET 5/325 TABLET 1 TAB PO (17:13)
[2019-06-22] MEDS: HYDROCODONE/ACET 5/325 PREPACK 1 BOTTLE MISC (18:15)
[2019-06-22] MEDS: ONDANSETRON 4 MG ODT PREPACK 1 BOTTLE MISC (18:17)
[2019-06-22 18:20] VITALS: BP 92/55; PULSE 76; RESP 16; O2SAT 96
--- NOTE | 2019-06-22 18:36 | PC.NURSE ---
upon discharging patient. she reports that she feels nauseated. food and apple juice to patient. LEIDY Matthews aware.
--- NOTE | 2019-06-22 18:58 | PC.NURSE ---
pt arrived to Er with catheter in place, leg bag filling up multiple times. changed pt's leg bag to a full melo bag .
[2019-06-22 19:02] VITALS: BP 104/58; PULSE 86; RESP 16; O2SAT 98
== END 2019-06-22 19:38 | disposition home or self-care (01) ==
PROVIDERS: Emergency Provider Nurse Practitioner Family
DX: G89.18 Other acute postprocedural pain (principal); R11.10 Vomiting, unspecified
CPT/HCPCS: 36415; 80053; 81003; 81025; 83605; 83690; 84145; 85025; 85610; 85730; 87040; 96361; 96374; 96375; 96376; 99284; 99285; J2270; J2405

== ENCOUNTER 2021-10-28 17:45 | Emergency (ER) | payer OTHER, MEDICAID, SELFPAY ==
[2021-10-28 17:49] VITALS: BP 113/60; PULSE 95; RESP 14; TEMP 36.7; O2SAT 96; BMI 19.5
--- NOTE | 2021-10-28 18:05 | DI.US.S_ITS ---
PROCEDURE: US PELVIC COMPLETE INDICATIONS: possibly ovarian cyst LMP unknown. TECHNIQUE: Real-time scanning was performed of the pelvic organs, with image documentation. Additional endovaginal scanning was necessary due to incomplete visualization of the adnexal and endometrial structures by transabdominal scanning. COMPARISON: [facility], US, US PELVIC COMPLETE, 06/24/2019, 11:22. FINDINGS: Uterus: Uterus is anteverted and normal in size at 7.3 x 4.8 x 3.9 cm. Mild septate uterus suspected. The myometrium is homogeneous. The endometrium measures 8 mm combined thickness. Ovaries: The right ovary measures 3.9 x 1.9 x 1.8 cm, with a calculated ovarian volume of 7 cc. The left ovary measures 3.6 x 2.4 x 1.9 cm, with a calculated ovarian volume of 9 cc. The ovaries have a normal sonographic appearance. Less than 12 follicles can be seen in each ovary. No adnexal masses are seen. Other: No pathologic free abdominal or pelvic fluid. IMPRESSION: 1. No significant ovarian cysts. 2. Endometrium measures 8 mm. Possible mild septate uterus. We strive to produce accurate, complete, and clear reports of imaging services. To assist us in improving patient care, this report was composed using standard report templates and voice recognition software. Therefore, it may contain abnormal punctuation, insertions and/or omissions. Occasional wrong-word or sound-alike substitutions may occur. Though we review the report and make efforts to correct it, we do recommend that the report be read carefully in proper context to recognize any text inaccuracies. Dictated by: Jose Armando Alfonso M.D. on 10/28/2021 at 18:48 Approved by: Jose Armando Alfonso M.D. on 10/28/2021 at 18:55
--- NOTE | 2021-10-28 18:59 | PC.NURSE ---
Patient with hx of left ovarian cyst that required surgery. Pain started last night with nausea/vomiting and fever. Per test, is positive, patient reports she hasn't been sexually active in 2 years and also has not have a period since November of last year. Notified provider.
[2021-10-28 19:03] LABS: Add Manual Diff / Slide Review NO; Basophils Absolute Auto 0 /uL (0-100); Basophils Percent Auto 0.6 % (0-2); Eosinophils Absolute Auto 200 /uL (0-450); Eosinophils Percent Auto 2.9 % (2-4); Hematocrit 38.3 % (36-46); Lymphocytes Absolute Auto 1600 /uL (1100-4500); Lymphocytes Percent Auto 26.8 % (25-40); Mean Corpuscular HGB Conc 33.9 % (30-36); Mean Corpuscular Volume 91.3 fL (80-100); Monocytes Absolute Auto 400 /uL (0-900); Neutrophils Absolute Auto 3800 /uL (1500-7000); Neutrophils Percent Auto 63.7 % (50-75); Platelet Count 219 X10^3/uL (150-400); Red Cell Distribution Width 12.6 % (11.6-14.8); White Blood Cell Count 5.9 X10^3/uL (4.5-11.0)
[2021-10-28 19:03] LABS: Amorphous Sediment Urine 1+; Bacteria Urine None Seen; Culture Indicated Urine Cult Not Indicated; Mucus Urine 1+ (Negative); RBC Urine 30-100/HPF (0-5/HPF); Squamous Epithelial Cell Urine 1-5 /HPF (0-5/HPF); WBC Urine 1-5/HPF (0-5/HPF)
--- NOTE | 2021-10-28 19:14 | ED.GENADULT ---
HPI - General Adult General Chief complaint: Urogenital-Female Stated complaint: thinks cyst on rt side Time Seen by Provider: 10/28/21 18:25 Source: patient Mode of arrival: Ambulatory History of Present Illness HPI narrative: 36-year-old woman with distant history of gastric ulcer and migraine who presents with increasing left lower quadrant pain. She noted that the pain began last night and she has seemed was related to an ovarian cyst. She has been taking 800 mg of ibuprofen with little relief. She noted a mild fever last night. The pain has progressed to the point that she is vomiting over the course of today it is having trouble standing up straight. She denies dysuria or overt hematuria. She is not and describes no vaginal discharge. She states that she has had kidney stones in the past and this feels decidedly different. She describes no current headache, chest pain, palpitations, dyspnea or orthopnea. Related Data Home Medications Medication Instructions Recorded Confirmed bupropion HCl 150 mg 24 hr tablet, 150 mg PO QAM 05/14/19 07/03/19 extended release (Wellbutrin XL) fluoxetine 20 mg capsule 20 mg PO DAILY 06/14/19 07/03/19 Previous Rx's Medication Instructions Recorded ibuprofen 800 mg tablet (IBU) 800 mg PO Q6H PRN pain #20 tabs 06/22/19 ondansetron 4 mg disintegrating 4 mg PO Q6H PRN nausea and 06/22/19 tablet vomiting #20 tabs cephalexin 500 mg capsule 500 mg PO Q6H #28 caps 07/03/19 oxycodone 5 mg tablet 5 mg PO Q6H PRN pain #10 tabs 07/03/19 fluconazole 150 mg tablet 150 mg PO Q3D 2 doses #2 tabs 07/08/19 (Diflucan) ondansetron 4 mg disintegrating 4 mg PO Q6H PRN nausea and 10/29/21 tablet vomiting #14 tabs Allergies Allergy/AdvReac Type Severity Reaction Status Date / Time metoclopramide [From Reglan] Allergy Unknown heart races Verified 10/28/21 17:49 Sulfa (Sulfonamide Allergy Verified 10/28/21 17:49 Antibiotics) adhesive AdvReac Intermediate ITCHING Verified 10/28/21 17:49 Review of Systems Review of Systems Narrative: Remainder of complete review of systems is otherwise unremarkable except for that included in the HPI. Patient History Medical History Anemia Anorexia nervosa (~2003) Carpal tunnel syndrome Migraines (~1995) Surgical History Anesthesia Cyst (~2015) History of breast augmentation (~2016) History of surgery Family History Father Hypertension Mother Breast cancer History of bipolar disorder Grandfather Stroke Grandmother Breast cancer Grandfather Liver cirrhosis Social History household members: spouse and children Smoking Status: Never smoker alcohol intake: current Smoking Status: Never smoker alcohol intake frequency: holidays/special occasions only Substance Use Type: does not use Exam Initial Vital Signs Initial Vital Signs: Vital Signs Temperature 98.0 F 10/28/21 17:49 Pulse Rate 95 H 10/28/21 17:49 Respiratory Rate 14 10/28/21 17:49 Blood Pressure 113/60 10/28/21 17:49 Pulse Oximetry 96 10/28/21 17:49 Oxygen Delivery Method 10/28/21 17:49 General: Fatigued with circles under her eyes, in obvious pain but Able to give a complete and coherent history. HEENT: Dry mucous membranes, normal sclera with reactive pupils, Neck: supple Respiratory: Lungs are clear to auscultation, no wheezing no rales no rhonchi. Full and symmetrical air movement Cardiac: Regular rate and rhythm no murmurs no bruits Abdomen: Soft, significant tenderness in the left lower quadrant radiating to the suprapubic area. Mild right flank pain mild left flank pain. Skin: Warm and dry, no rashes Neurologic: Grossly neurologically intact with no obvious asymmetries or abnormalities Extremities: No trauma, well perfused Psych: Cooperative, appropriate insight and affect Course Orders Ordered: ED Orders 10/28/21 20:45 CT abdomen pelvis w con Stat Discontinued Medications Hydromorphone HCl (Hydromorphone 0.5 Mg Inj) 0.5 mg IV Q15MIN PRN PRN Reason: Pain, Last Admin: 10/28/21 23:19 Dose: 0.5 mg Documented By: Admin: 10/28/21 21:06 Dose: 0.5 mg Documented By: JADIEL Sodium Chloride (Normal Saline 0.9%) 1,000 mls @ 1,000 mls/hr IV BOLUS ONE Stop: 10/28/21 21:43 Last Infusion: 10/28/21 22:41 Dose: 0 mls/hr Documented By: Admin: 10/28/21 20:50 Dose: 1,000 mls/hr Documented By: JADIEL Ondansetron HCl (Ondansetron 4 Mg/2 Ml Inj) 4 mg IV NOW ONE Stop: 10/28/21 20:45 Last Admin: 10/28/21 20:50 Dose: 4 mg Documented By: JADIEL Ondansetron HCl (Ondansetron 4 Mg Odt Prepack) 1 bottle MISC SEEINSTR ONE Stop: 10/29/21 00:57 Last Admin: 10/29/21 01:00 Dose: 1 bottle Documented By: JADIEL Vital Signs Vital signs: Vital Signs - 8 hr 10/29/21 01:01 Pulse Rate 65 Respiratory Rate 16 Blood Pressure 96/55 L Pulse Oximetry 95 Oxygen Delivery Method Room Air Medical Decision Making Lab Data Result diagrams: 10/28/21 18:48 10/28/21 18:48 Labs: Lab Results 10/28/21 10/28/21 10/28/21 Range/Units 18:10 18:48 18:48 WBC 5.9 (4.5-11.0) X10^3/uL RBC 4.20 (4.0-5.2) X10^6/uL Hgb 13.0 (12.0-16.0) g/dL Hct 38.3 (36-46) % MCV 91.3 (80-100) fL MCH 31.0 (26-34) PG MCHC 33.9 (30-36) % RDW 12.6 (11.6-14.8) % Plt Count 219 (150-400) X10^3/uL Neut % (Auto) 63.7 (50-75) % Lymph % (Auto) 26.8 (25-40) % [place] % (Auto) 6.0 (3-14) % Eos % (Auto) 2.9 (2-4) % Baso % (Auto) 0.6 (0-2) % Neut # (Auto) 3800 (5312-2999) /uL Lymph # (Auto) 1600 (6795-8103) /uL [place] # (Auto) 400 (0-900) /uL Eos # (Auto) 200 (0-450) /uL Baso # (Auto) 0 (0-100) /uL Sodium 139 (137-145) mmol/L Potassium 4.1 (3.4-5.1) mmol/L Chloride 105 (98-107) mmol/L Carbon Dioxide 25 (22-32) mmol/L BUN 19 H (7-17) mg/dL Creatinine 1.67 H (0.52-1.04) mg/dL Estimated GFR 40 L (>60) mL/min BUN/Creatinine Ratio 11.4 (6-22) Glucose 125 H (70-100) mg/dL Calcium 9.1 (8.4-10.2) mg/dL Total Bilirubin 0.3 (0.2-1.3) mg/dL AST 21 (14-36) IU/L ALT 15 (<35) IU/L Alkaline Phosphatase 36 L (38-126) U/L Total Protein 6.9 (6.3-8.2) g/dL Albumin 4.2 (3.5-5.0) g/dL Globulin 2.7 (1.7-4.1) g/dL Albumin/Globulin Ratio 1.6 (1.0-2.8) HCG, Quant < 2.4 mIU/mL Urine RBC 30-100/hpf H (0-5/HPF) Urine WBC 1-5/hpf (0-5/HPF) Ur Squamous Epith Cells 1-5 /hpf (0-5/HPF) Amorphous Sediment 1+ Urine Bacteria None seen (None) Urine Mucus 1+ H (Negative) Ur Culture Indicated? Cult not indicated Blood Type Antibody Screen 10/28/21 Range/Units 18:48 WBC (4.5-11.0) X10^3/uL RBC (4.0-5.2) X10^6/uL Hgb (12.0-16.0) g/dL Hct (36-46) % MCV (80-100) fL MCH (26-34) PG MCHC (30-36) % RDW (11.6-14.8) % Plt Count (150-400) X10^3/uL Neut % (Auto) (50-75) % Lymph % (Auto) (25-40) % [place] % (Auto) (3-14) % Eos % (Auto) (2-4) % Baso % (Auto) (0-2) % Neut # (Auto) (2035-9750) /uL Lymph # (Auto) (0933-5871) /uL [place] # (Auto) (0-900) /uL Eos # (Auto) (0-450) /uL Baso # (Auto) (0-100) /uL Sodium (137-145) mmol/L Potassium (3.4-5.1) mmol/L Chloride (98-107) mmol/L Carbon Dioxide (22-32) mmol/L BUN (7-17) mg/dL Creatinine (0.52-1.04) mg/dL Estimated GFR (>60) mL/min BUN/Creatinine Ratio (6-22) Glucose (70-100) mg/dL Calcium (8.4-10.2) mg/dL Total Bilirubin (0.2-1.3) mg/dL AST (14-36) IU/L ALT (<35) IU/L Alkaline Phosphatase (38-126) U/L Total Protein (6.3-8.2) g/dL Albumin (3.5-5.0) g/dL Globulin (1.7-4.1) g/dL Albumin/Globulin Ratio (1.0-2.8) HCG, Quant mIU/mL Urine RBC (0-5/HPF) Urine WBC (0-5/HPF) Ur Squamous Epith Cells (0-5/HPF) Amorphous Sediment Urine Bacteria (None) Urine Mucus (Negative) Ur Culture Indicated? Blood Type O Negative Antibody Screen Negative Point of Care Testing Test Results Positive Urine Dip Bedside Urine Glucose Negative Bedside Urine Bilirubin - Negative Bedside Urine Ketone - Negative Urine Specific [place] 1.010 Bedside Urine Occult Blood +++ Bedside Urine pH 7.0 Bedside Urine Protein +/- 15 Bedside Urine Urobilinogen - Negative Bedside Urine Nitrite - Negative Bedside Urine Leukocytes - Negative Esterase Point of care testing: Point of Care Testing Test Results Positive Urine Dip Bedside Urine Glucose Negative Bedside Urine Bilirubin - Negative Bedside Urine Ketone - Negative Urine Specific [place] 1.010 Bedside Urine Occult Blood +++ Bedside Urine pH 7.0 Bedside Urine Protein +/- 15 Bedside Urine Urobilinogen - Negative Bedside Urine Nitrite - Negative Bedside Urine Leukocytes - Negative Esterase Imaging Data Pelvic US: Radiologist's Impression: FINDINGS:? ?? Uterus:? Uterus is anteverted and normal in size at 7.3 x 4.8 x 3.9 cm.? Mild septate uterus suspected.? The myometrium is homogeneous. ? The endometrium measures 8 mm combined thickness.? ? Ovaries:? The right ovary measures 3.9 x 1.9 x 1.8 cm, with a calculated ovarian volume of 7 cc. The left ovary measures 3.6 x 2.4 x 1.9 cm, with a calculated ovarian volume of 9 cc. The ovaries have a normal sonographic appearance. Less than 12 follicles can be seen in each ovary.? No adnexal masses are seen. ? Other:? No pathologic free abdominal or pelvic fluid. ? ? IMPRESSION:? 1. No significant ovarian cysts. ? 2. Endometrium measures 8 mm.? Possible mild septate uterus. ? ? We strive to produce accurate, complete, and clear reports of imaging services. To assist us in improving patient care, this report was composed using standard report templates and voice recognition software. Therefore, it may contain abnormal punctuation, insertions and/or omissions. Occasional wrong-word or sound-alike substitutions may occur. Though we review the report and make efforts to correct it, we do recommend that the report be read carefully in proper context to recognize any text inaccuracies. ? ? Dictated by: Jose Armando Alfonso M.D. on 10/28/2021 at 18:48 ? ? CT scan - abdomen/pelvis: Radiologist's Impression: FINDINGS:? Image quality:? Excellent.? ? Lung bases:? There is minimal dependent atelectasis.? ? Heart:? Heart is normal in size. ? ? ABDOMEN: Liver:? No mass lesion. Gallbladder:? Within normal limits without calcified gallstones.? ? Biliary ducts:? No biliary ductal dilatation.? ? Pancreas:? Unremarkable.? ? Spleen:? Normal in size.? ? Adrenal Glands:? No adrenal nodules.? ? Kidneys and Ureters:? No hydronephrosis.? ? ? Stomach and Bowel:? Stomach, small bowel loops, and colon are normal in caliber and wall thickness.? The appendix is normal in appearance.? There is colonic diverticulosis without acute diverticulitis.? Peritoneum:? No abnormal intraperitoneal fluid.? No free air.? ? Ventral Wall: ? No hernia.? Abdominal Nodes:? No retroperitoneal or mesenteric adenopathy by size criteria.? Vessels:? Aorta and inferior vena cava are normal in size.? ? PELVIS: Pelvic Organs:? There is a right ovarian cyst measuring up to 2.3 cm which is nonspecific but likely represents a follicular cyst.? Uterus and ovaries appear within normal size limits for age.? ? Bladder:? Unremarkable.? ? Pelvic Nodes: No enlarged lymph nodes.? Miscellaneous: No inguinal hernias are seen. ? ? ? Bones:? Visualized osseous structures demonstrate no suspicious focal lesions. ? ? IMPRESSION:? ? 1. No definite acute intra-abdominal abnormality.? Specifically, there is colonic diverticulosis without acute diverticulitis. ? 2. No evidence of obstructive uropathy. ? 3. Small nonspecific right ovarian cyst likely represents a follicular cyst.? ? ? Dictated by: Irineo Rios M.D. on 10/28/2021 at 21:46 ? ? MDM Narrative Medical decision making narrative: 36-year-old woman with 24 hours of left lower quadrant pain increasing in severity. Vomiting with acute kidney injury appreciated. Ultrasound of her pelvis does not suggest pelvic pathology, ovarian torsion or ovarian abnormality. CT scan does not show significant pathology. No acute diverticulitis, hydronephrosis, no bowel obstruction, no abscess. Patient continues to have fairly significant abdominal pain with vomiting in the emergency department. After a 2 L of fluid and additional Zofran nausea is controlled, she tolerates yovany darryl without difficulty pain is significantly improved. At this point I do not have an obvious explanation for her pain and findings of CT scan, ultrasound and blood work are all shared with her. She is feeling improved there is no evidence of sepsis, acute surgical abdomen, pancreatitis, kidney stones, uterine or ovarian pathology. She will be discharged home and have encouraged her to return if she is worsening. Discharge Plan Departure Patient Disposition: Home Clinical Impression: Vomiting Instructions: DI for Vomiting -- Adult Activity Restrictions/Additional Instructions: Thank you for coming in today Your ultrasound and CT scan does not show any dramatic abnormalities including an ovarian torsion, rupturing ovarian cyst, appendicitis, diverticulitis, bowel obstruction or other significant abdominal finding to explain your abdominal pain and vomiting. You have been given fluid in the emergency department and responded well to ondansetron/Zofran for nausea. You have been able to keep fluids down. I am going to send you home with some Zofran to use for nausea along with an additional prescription. A prescription was electronically transmitted to [facility] in [place]. If your pain returns, you need to return to the emergency department and we need to re-evaluate. I wish you the best Prescriptions: New ondansetron 4 mg tablet,disintegrating 4 mg PO Q6H PRN (Reason: nausea and vomiting) Qty: 14 0RF No Action fluconazole [Diflucan] 150 mg tablet 150 mg PO Q3D Qty: 2 0RF bupropion HCl [Wellbutrin XL] 150 mg tablet extended release 24 hr 150 mg PO QAM oxycodone 5 mg tablet 5 mg PO Q6H PRN (Reason: pain) Qty: 10 0RF cephalexin 500 mg capsule 500 mg PO Q6H Qty: 28 0RF fluoxetine 20 mg capsule 20 mg PO DAILY ibuprofen [IBU] 800 mg tablet 800 mg PO Q6H PRN (Reason: pain) Qty: 20 0RF ondansetron 4 mg tablet,disintegrating 4 mg PO Q6H PRN (Reason: nausea and vomiting) Qty: 20 0RF Referrals: Zuly Rosales FNP-BC [Primary Care Provider] - Visit Report Forms: Patient Portal/API
[2021-10-28 19:29] LABS: Alanine Aminotransferase 15 IU/L (<35); Albumin 4.2 g/dL (3.5-5.0); Albumin Globulin Ratio 1.6 (1.0-2.8); Alkaline Phosphatase 36 U/L (38-126); Aspartate Aminotransferase 21 IU/L (14-36); BUN Creatinine Ratio 11.4 (6-22); Bilirubin Total 0.3 mg/dL (0.2-1.3); Blood Urea Nitrogen 19 mg/dL (7-17); Carbon Dioxide 25 mmol/L (22-32); Chloride 105 mmol/L (98-107); Estimated Glomerular Filt Rate 40 mL/min (>60); Globulin 2.7 g/dL (1.7-4.1); Glucose 125 mg/dL (70-100); Sodium 139 mmol/L (137-145); Total Protein 6.9 g/dL (6.3-8.2)
[2021-10-28 19:32] LABS: Calcium 9.1 mg/dL (8.4-10.2); HEMOLYSIS < 15 (0-50); Potassium 4.1 mmol/L (3.4-5.1)
[2021-10-28 19:46] LABS: HCG Quantitative /Beta subunit < 2.4 mIU/mL
[2021-10-28 20:08] VITALS: BP 107/56; PULSE 68; RESP 18; O2SAT 95
--- NOTE | 2021-10-28 20:45 | DI.CT.S_ITS ---
PROCEDURE: CT ABDOMEN PELVIS W CON INDICATIONS: LLQ pain TECHNIQUE: After the administration of IV contrast, axial sections were acquired from the lung bases to the pubic symphysis. Coronal and sagittal reformats were performed. For radiation dose reduction, the following was used: automated exposure control, adjustment of mA and/or kV according to patient size. COMPARISON: None. FINDINGS: Image quality: Excellent. Lung bases: There is minimal dependent atelectasis. Heart: Heart is normal in size. ABDOMEN: Liver: No mass lesion. Gallbladder: Within normal limits without calcified gallstones. Biliary ducts: No biliary ductal dilatation. Pancreas: Unremarkable. Spleen: Normal in size. Adrenal Glands: No adrenal nodules. Kidneys and Ureters: No hydronephrosis. Stomach and Bowel: Stomach, small bowel loops, and colon are normal in caliber and wall thickness. The appendix is normal in appearance. There is colonic diverticulosis without acute diverticulitis. Peritoneum: No abnormal intraperitoneal fluid. No free air. Ventral Wall: No hernia. Abdominal Nodes: No retroperitoneal or mesenteric adenopathy by size criteria. Vessels: Aorta and inferior vena cava are normal in size. PELVIS: Pelvic Organs: There is a right ovarian cyst measuring up to 2.3 cm which is nonspecific but likely represents a follicular cyst. Uterus and ovaries appear within normal size limits for age. Bladder: Unremarkable. Pelvic Nodes: No enlarged lymph nodes. Miscellaneous: No inguinal hernias are seen. Bones: Visualized osseous structures demonstrate no suspicious focal lesions. IMPRESSION: 1. No definite acute intra-abdominal abnormality. Specifically, there is colonic diverticulosis without acute diverticulitis. 2. No evidence of obstructive uropathy. 3. Small nonspecific right ovarian cyst likely represents a follicular cyst. Dictated by: Irineo Rios M.D. on 10/28/2021 at 21:46 Approved by: Irineo Rios M.D. on 10/28/2021 at 21:50
[2021-10-28] MEDS: SODIUM CHLORIDE 0.9% 1,000 ML 1000 ML IV (20:50)
[2021-10-28] MEDS: ONDANSETRON 4 MG/2 ML INJ IV (20:50)
[2021-10-28] MEDS: HYDROMORPHONE 0.5 MG INJ IV ×2 (21:06→23:19)
[2021-10-29] MEDS: ONDANSETRON 4 MG ODT PREPACK 1 BOTTLE MISC (01:00)
[2021-10-29 01:01] VITALS: BP 96/55; PULSE 65; RESP 16; O2SAT 95
== END 2021-10-29 01:04 | disposition home or self-care (01) ==
PROVIDERS: Emergency Provider Emergency Medicine; PCP Nurse Practitioner Family
DX: R11.10 Vomiting, unspecified (principal)
CPT/HCPCS: 36415; 74177; 76856; 80053; 81003; 81015; 81025; 84702; 85025; 86850; 86900; 86901; 96361; 96374; 96375; 96376; 99284; J1170; J2405; Q9967